=== PATIENT | female | born 1955 | race Caucasian/White ===

== ENCOUNTER 2016-05-11 16:10 | Outpatient (CLI) | payer MEDICARE ==
[2015-07-08 09:33] VITALS: BP 116/69
[2016-05-11 16:16] LABS: BASOPHILS % 0.4 (0.0-1.5); EOSINOPHILS % 0.9 % (0.0-6.8); LYMPHOCYTES # 0.6 # k/uL (0.6-4.0); MEAN CORPUSCULAR HEMOGLOBIN 22.7 pg (28.0-34.0); MONOCYTES # 0.4 # k/uL (0.0-0.9); MONOCYTES % 4.7 % (0.0-11.0); NEUTROPHILS # 6.4 # k/uL (1.4-7.7)
[2016-05-11 16:27] LABS: eGFR (African) > 60; eGFR (Non-African) > 60
== END 2016-05-11 16:11 ==
LOC: LABRHC 16:10
PROVIDERS: ATTEND Family Medicine
DX: I10 Essential (primary) hypertension (principal)
CPT/HCPCS: 80048; 85025

== ENCOUNTER 2016-06-14 20:45 | Emergency (ER) | payer MEDICARE, OTHER ==
--- NOTE | 2016-06-14 21:30 | ED Physician Documentation ---
General Adult - HISTORIAN Historian: patient, paramedics - HPI Stated Complaint: found on floor after falling out of wheelchair Chief Complaint: General Adult Additional Information: brought by EMS, family found her on the floor in [facility], she fell out of wheel chair, obese and non-ambulatory. filthy. Animal and human feces on her. unknown how long she was on floor. Onset: hours Timing: still present Severity: moderate Further Comments: no - ROS CONST: no problems EYES/ENT: none CVS/RESP: none GI/: none MS/SKIN/LYMPH: none NEURO/PSYCH: difficulty walking. denies: headache, fainting, dizziness, tingling, numbness, difficulty with speech - PAST HX Past History: hypertension Other History: other (crohns) Allergies/Adverse Reactions: Allergies Allergy/AdvReac Type Severity Reaction Status Date / Time morphine AdvReac Hallucinati Verified 06/14/16 22:17 ons - SOCIAL HX Smoking History: non-smoker Alcohol Use: none Drug Use: none - FAMILY HX Family History: No - VITAL SIGNS Vital Signs: Vital Signs Temp Pulse Resp BP Pulse Ox 116/69 07/08/15 09:32 - REVIEWED ASSESSMENTS Nursing Assessment Reviewed: Yes Vitals Reviewed: Yes Progress - Results/Orders Results/Orders: Elevated CK, elevated CK-MB, BUN 31.0 , Creat 1.0 - Progress Progress: 2345 Dr. Roberts at [facility] ER accepted transfer, No orders given. - Additional EKG/XRAY/Consults EKG #2: NSR, no ST T wave changes ED Results Lab/Radiology - Lab Results Lab Results: mild anemia 10.2 left shift 89.9 Neut General Adult Physical Exam - PHYSICAL EXAM GENERAL APPEARANCE: mild distress EENT: eye inspection normal, ENT inspection normal NECK: normal inspection RESPIRATORY: no resp distress, breath sounds normal CVS: reg rate & rhythm ABDOMEN: soft (too large to eval) BACK: normal inspection (unable to eval) SKIN: other (covered in feces and urine. multi erythema) NEURO: oriented X3 Discharge Clincal Impression: Elevated creatine kinase level, Hypovolemia, Cellulitis of right lower extremity, Dirty living conditions Fall Qualifiers: Encounter type: initial encounter Qualified Code(s): W19.XXXA - Unspecified fall, initial encounter Obesity Qualifiers: Obesity type: unspecified obesity type Obesity severity: morbid Qualified Code( s): E66.01 - Morbid (severe) obesity due to excess calories Cellulitis Qualifiers: Site of cellulitis: buttock Qualified Code(s): L03.317 - Cellulitis of buttock Cellulitis Qualifiers: Site of cellulitis: buttock Qualified Code(s): L03.317 - Cellulitis of buttock Cellulitis of lower extremity Qualifiers: Laterality: left Qualified Code(s): L03.116 - Cellulitis of left lower limb Pressure ulcer Qualifiers: Pressure ulcer location: contiguous region involving back, buttock, and hip Pressure ulcer stage: unspecified pressure ulcer stage Laterality: unspecified laterality Qualified Code(s): L89.40 - Pressure ulcer of contiguous site of back , buttock and hip, unspecified stage Condition: Fair Disposition: 02 XFER SHT-TRM HOSP Decision to Admit: NO Date of Decison to Admit: 06/15/16 Decision Time: 00:07
[2016-06-14 22:04] LABS: BASOPHILS % 0.3 (0.0-1.5); EOSINOPHILS % 0.2 % (0.0-6.8); LYMPHOCYTES # 0.4 # k/uL (0.6-4.0); MEAN CORPUSCULAR HEMOGLOBIN 21.8 pg (28.0-34.0); MONOCYTES # 0.6 # k/uL (0.0-0.9); MONOCYTES % 4.9 % (0.0-11.0); NEUTROPHILS # 10.8 # k/uL (1.4-7.7)
[2016-06-14 22:13] LABS: eGFR (African) > 60; eGFR (Non-African) > 60
[2016-06-14] MEDS ORDERED: 0.9 % SODIUM CHLORIDE 1,000 ML IV ONE (23:47)
[2016-06-15] MEDS ORDERED: NORMAL SALINE 500 ML IV.SOLN IV SCH (00:30)
[2016-06-15 02:26] VITALS: BP 84/55
--- NOTE | 2016-06-15 06:18 | Diagnostic Imaging Report ---
Report Submission Date: Jun 14, 2016 10:40:10 PM CDT Patient ~ Study Name: JUANIS DANIELS ~ Date: Jun 14, 2016 10:20:56 PM CDT ~ Modality Type: CR Gender: F ~ Description: UPPER EXTREMITY : 55 ~ Institution: [facility] [place] [facility] Physician: MAYA CHACON ~ ~ ~ ~ Left elbow, AP and lateral History: Pain Findings: Soft tissue swelling is present. There is no fracture dislocation. Degenerative changes are noted. Impression: 1. Degenerative change. 2. No acute osseous abnormality. ~ Electronically signed on Jun 14, 2016 10:40:10 PM CDT by: Michael SWENSON
== END 2016-06-15 00:25 | disposition short-term general hospital (02) ==
LOC: ED 20:45
DX: E66.01 Morbid (severe) obesity due to excess calories (principal); L03.317 Cellulitis of buttock; L03.116 Cellulitis of left lower limb; W19.XXXA Unspecified fall, initial encounter; Y93.9 Activity, unspecified; Y99.9 Unspecified external cause status; L89.40 Pressure ulcer of contiguous site of back, buttock and hip, unspecified stage
CPT/HCPCS: 51702; 73070; 80053; 82550; 82553; 84484; 85025; 93005; J7030; 99284; S1016

== ENCOUNTER 2016-10-20 13:38 | Outpatient (CLI) | payer MEDICARE, OTHER ==
--- NOTE | 2016-10-23 14:12 | CONSULTATION REPORT ---
REFERRING PHYSICIAN: Abhijit Sun MD CONSULTING PHYSICIAN: Albaro Thomas MD Dear Dr. Sun: REASON FOR CONSULTATION: Thank you for referring Asuncion Ba for an evaluation of rheumatoid arthritis. HISTORY OF PRESENT ILLNESS: This lady is a 61-year-old white woman who was found in June 2015 to have an elevated rheumatoid factor and a sedimentation rate of 114. She had some improvement with prednisone 10 mg daily. She comes in for further management. When I asked her how long she has had her hand deformity, she tells me she cannot remember. It has been present forever. She tells me a lot of her family members had such deformities. It involves mainly the hands. She has no significant problems with her elbows, shoulder, knees, ankles, or feet. Again, she had some relief with prednisone. Of note, she also suffers from Crohn's disease and is on sulfasalazine. Her bowels have been doing well. She is due for a colonoscopy next week. PAST MEDICAL HISTORY: 1. Hypertension. 2. Crohn's disease. 3. Rheumatoid arthritis. PAST SURGICAL HISTORY: 1. Appendectomy. 2. Pneumonia with an effusion requiring decortication. PRESENT MEDICATIONS: 1. Prednisone 10 mg daily. 2. Metoprolol 50 mg twice a day. 3. Lasix 40 mg daily. 4. Sulfasalazine 1000 mg 4 times a day. 5. Folic acid 1 mg daily. She tried methotrexate 2 tablets weekly for a month and this was stopped due to lack of response. SOCIAL HISTORY: The patient does not smoke. She is disabled. Denies alcohol and drugs. She is current on her health screens including a DEXA scan which was done some time this past year. REVIEW OF SYSTEMS: Positive for a little fatigue, but otherwise presently no fevers, chills, sweats , chest pain, shortness of breath, cough, wheezing, nausea, vomiting, or diarrhea. PHYSICAL EXAMINATION: VITAL SIGNS: BP: 160/90, T: 99, R: 12, heart rate 105. Weight: 244. Height : 5 feet 2 inches. HEENT: Sclerae are anicteric. Conjunctivae are pink. No stomatitis or glossitis. Poor dentition. No parotid or submandibular swelling. NECK: No cervical nodes. LUNGS: Clear. HEART: Regular rhythm. ABDOMEN: Soft and nontender. VASCULAR: No edema or cyanosis. PERIPHERAL JOINTS: Some tenderness at the MCPs and ulnar deviation but no active synovitis. The wrists, elbows, shoulders, hips, knees, ankles, and feet are otherwise unremarkable. REVIEW OF DATA: Rheumatoid factor was over 640 units. TALISHA screen was negative. CPK was slightly elevated at 264 in May of 2016. Creatinine was normal at 1. Last hemoglobin was 10.2. Platelet count 358,000, white count 11.98. IMPRESSION: 1. Seropositive rheumatoid arthritis. I am going to x-ray her hands and feet. 2. Anemia of chronic disease. 3. Severe obesity. 4. History of hypertension. 5. Crohn's disease. PLAN: I am going to keep her on sulfasalazine for her Crohn's disease and attempt to treat her rheumatoid arthritis with triple therapy which would include sulfasalazine, methotrexate 3 tablets weekly, and Plaquenil 200 mg twice a day. I will re-evaluate her in 2 months. At that time, I will check a CBC, CMP, CPK, and repeat a sedimentation rate. On today's visit, we will check a sedimentation rate, CBC, and CMP. Thank you very much for the opportunity to take care of your patients. Best regards, cc: Dr. Abhijit SWENSON
== END 2016-10-20 13:40 ==
LOC: RHEU 13:38
PROVIDERS: ATTEND Internal Medicine
DX: M05.9 Rheumatoid arthritis with rheumatoid factor, unspecified (principal); E66.01 Morbid (severe) obesity due to excess calories; I10 Essential (primary) hypertension; K50.90 Crohn's disease, unspecified, without complications
CPT/HCPCS: G0463

== ENCOUNTER 2016-11-27 14:04 | Outpatient (CLI) | payer MEDICARE, OTHER ==
[2016-11-27 14:48] LABS: BASOPHILS % 0.5 (0.0-1.5); MEAN CORPUSCULAR HEMOGLOBIN 26.5 pg (28.0-34.0); MEAN CORPUSCULAR VOLUME 86.5 fl (80.0-100.0); MONOCYTES % 2.6 % (0.0-11.0); NEUTROPHILS # 8.5 # k/uL (1.4-7.7)
--- NOTE | 2016-11-27 15:19 | Diagnostic Imaging Report ---
NERY GARVEY [facility] [address] [facility].[address] [address] Report Submission Date: Nov 27, 2016 3:06:35 PM CDT Patient Study Name: JUANIS DANIELS Date: Nov 27, 2016 2:20:37 PM CDT Modality Type: CR Gender: F Description: LOWER EXTREMITY : 55 Institution: [facility] Physician: NERY GARVEY Examination: Plain film foot History: Arthritis Findings: 2 views of the left and right feet demonstrates normal cortical margins. No fracture or dislocation. Articular degenerative changes. Generalized osteopenia. Inferior calcaneal spurs. Soft tissue swelling. No joint effusion. Impression: Articular degenerative changes and generalized osteopenia. No fracture. Electronically signed on Nov 27, 2016 3:06:35 PM CDT by: Adarsh SWENSON
[2016-11-27 15:24] LABS: eGFR (African) > 60; eGFR (Non-African) > 60
--- NOTE | 2016-11-27 17:30 | Diagnostic Imaging Report ---
NERY GARVEY~ [facility] [place] [facility] [address] [facility].[address] [address] ~ ~ ~ ~ Report Submission Date: Nov 27, 2016 4:04:26 PM CDT Patient ~ Study Name: JUANIS DANIELS ~ Date: Nov 27, 2016 2:11:01 PM CDT ~ Modality Type: CR Gender: F ~ Description: UPPER EXTREMITY : 55 ~ Institution: [facility] [place] [facility] Physician: NERY GARVEY ~ ~ ~ ~ Examination: Plain film hand History: Hand discomfort Comparison exams: None available Findings: 3 views the right and left hands. Generalized osteopenia. Extensive articular degenerative changes. Degenerative changes of the intra carpal regions. Extensive carpal metacarpal articular degenerative changes. Radiocarpal degenerative changes. Impression: Extensive bilateral arthritic changes. ~ Electronically signed on Nov 27, 2016 4:04:26 PM CDT by: Adarsh SWENSON
== END 2016-11-27 14:05 ==
LOC: LAB 14:04
PROVIDERS: ATTEND Internal Medicine
DX: M05.79 Rheumatoid arthritis with rheumatoid factor of multiple sites without organ or systems involvement (principal); Z79.899 Other long term (current) drug therapy
CPT/HCPCS: 36415; 80053; 85025; 85651

== ENCOUNTER 2016-12-15 12:48 | Outpatient (CLI) | payer MEDICARE, OTHER ==
--- NOTE | 2016-12-18 15:02 | OP Clinic Progress Note ---
Dear Dr. Sun: REASON FOR VISIT: I had the pleasure of seeing Asuncion Ba in follow up for her rheumatoid arthritis. As you know, I started methotrexate and Plaquenil on her last visit and she is presently on triple therapy consisting of the above 2 medications in addition to sulfasalazine. She thinks she has less pain. Otherwise, she has no new deformities. Activities of daily living are still otherwise limited. She has tolerated the methotrexate well with no mouth sores. No chest pain or shortness of breath. No nausea, vomiting, or diarrhea. Plaquenil has caused no visual disturbance or skin rash, nausea or vomiting. Review of her data, her original sedimentation rate was 114. Her recent sedimentation rate was 63. CBC and CMP were found to be within normal limits and not reflecting renal or liver toxicity or anemia. PAST MEDICAL HISTORY: 1. Hypertension. 2. Crohn's disease. 3. Rheumatoid arthritis. 4. Appendectomy. 5. Pneumonia. PRESENT MEDICATIONS: 1. Prednisone 10 mg daily. 2. Methotrexate 3 tablets weekly. 3. Plaquenil 200 mg twice a day. 4. Metoprolol 50 mg twice a day. 5. Lasix 40 mg daily. 6. Folic acid. 7. Sulfasalazine 1000 mg 4 times a day. 8. Trazodone. REVIEW OF SYSTEMS: Review of systems is otherwise positive for stress and , but otherwise, no fevers, chills, sweats, chest pain, shortness of breath, cough, wheezing, nausea, vomiting, or diarrhea. SOCIAL HISTORY: Patient does not smoke. She is disabled. No drug or tobacco use. PHYSICAL EXAMINATION: GENERAL: On exam, she looks well. VITAL SIGNS: Height: 5 feet 7 inches. Weight: 277. R: 20, T: 99.3, heart rate is 100, BP: 159/91. HEENT: Sclerae are anicteric. Conjunctivae are pink. No stomatitis or glossitis. Dentition is poor. LUNGS: Clear with no crackles or wheezing. HEART: Regular rhythm. ABDOMEN: Soft. VASCULAR: She has trace edema of the lower extremities. PERIPHERAL JOINTS: Shows rheumatoid deformities at the MCPs and wrists with a little tenderness but no fluid. Elbows, shoulders, hips, knees, ankles, and feet are nontender. DIAGNOSTIC STUDIES: I personally reviewed her labs and also personally reviewed her x-rays and disagree with the radiology reading. She has classical findings of soft tissue swelling, ulnar deviation, joint space narrowing with erosions throughout the MTPs and the carpal bones on both the right and left hand. IMPRESSION: Seropositive erosive severe rheumatoid arthritis, improving on triple therapy. PLAN: We will try to decrease her prednisone to 5 mg a day. I will see her back in March. She will get a CBC, CMP, sedimentation rate, CRP approximately a week before her next visit. Thank you very much for the opportunity to participate in the care of your patient. Best regards, cc: Dr. Abhijit SWENSON
== END 2016-12-15 12:50 ==
LOC: RHEU 12:48
PROVIDERS: ATTEND Internal Medicine
DX: M05.9 Rheumatoid arthritis with rheumatoid factor, unspecified (principal)
CPT/HCPCS: G0463

== ENCOUNTER → 2017-03-09 | Outpatient (CLI) | payer MEDICARE, OTHER ==
[2017-03-09 12:22] LABS: BASOPHILS % 0.9 (0.0-1.5); EOSINOPHILS % 1.8 % (0.0-6.8); MEAN CORPUSCULAR HEMOGLOBIN 29.6 pg (28.0-34.0); MEAN CORPUSCULAR VOLUME 95.1 fl (80.0-100.0); MONOCYTES % 4.3 % (0.0-11.0); NEUTROPHILS # 8.3 # k/uL (1.4-7.7)
[2017-03-09 12:37] LABS: eGFR (African) > 60; eGFR (Non-African) > 60
== END ==
LOC: LAB 11:54
PROVIDERS: ATTEND Internal Medicine
DX: M05.79 Rheumatoid arthritis with rheumatoid factor of multiple sites without organ or systems involvement (principal)
CPT/HCPCS: 36415; 80053; 85025; 85651; 86140

== ENCOUNTER 2017-05-18 13:03 | Outpatient (CLI) | payer MEDICARE, OTHER ==
--- NOTE | 2017-05-21 11:40 | OP Clinic Progress Note ---
REASON FOR VISIT: Asuncion Ba returns for follow up on her seropositive rheumatoid arthritis of multiple sites. She is doing significantly better. She has no significant joint swelling, warmth, tenderness, or pain. She had 1 episode where she fell asleep on the couch and woke up in an awkward position and had generalized pain but that resolved quickly. PAST MEDICAL HISTORY: 1. Hypertension. 2. Crohn's disease. 3. Rheumatoid arthritis. 4. Appendectomy. 5. Pneumonia. PRESENT MEDICATIONS: 1. Prednisone 5 mg daily. 2. Plaquenil 200 mg twice a day. 3. Metoprolol 50 mg daily. 4. Sulfasalazine 1000 mg 4 times a day. 5. Lasix 40 mg daily. 6. Folic acid 1 mg daily. 7. Trazodone as needed. 8. Methotrexate weekly. SOCIAL HISTORY: No smoking. She is disabled. No drug or tobacco use. REVIEW OF SYSTEMS: No fevers, chills, sweats, chest pain, shortness of breath, cough, or wheezing. She does note that her weight continues to increase and she is having some issues with water retention. PHYSICAL EXAMINATION: GENERAL: She looks well. She is using a wheeled walker. VITAL SIGNS: Height: 5 feet 8 inches. Weight: 303. T: 97.7, R: 20, heart rate 100, BP: 160/96. HEENT: Sclerae are anicteric. Conjunctivae are pink. No stomatitis or glossitis. LUNGS: Clear. HEART: Regular rhythm. ABDOMEN: Soft. VASCULAR: She has edema of her lower extremities. PERIPHERAL JOINTS: Rheumatoid deformities at the MCPs and wrists, but no tenderness or significant effusions. LABORATORY: Her last labs revealed a sedimentation rate of 57. White count of 9.9, hemoglobin of 14.2. AST 13 and ALT of 29. CRP was 3.87. IMPRESSION: Seropositive rheumatoid arthritis, improving. Let us recall she is seropositive with a rheumatoid factor of over 650. PLAN: 1. We will check her labs for drug toxicity and disease activity today and also screening her for viral hepatitis and QuantiFERON-TB Gold 2. I will see her back in 3 months. Thank you very much. Best regards, cc: Dr. Abhijit SWENSON
== END 2017-05-18 13:04 ==
LOC: RHEU 13:03
PROVIDERS: ATTEND Internal Medicine
DX: M05.9 Rheumatoid arthritis with rheumatoid factor, unspecified (principal)
CPT/HCPCS: 99214; G0463

== ENCOUNTER 2017-07-11 09:30 | Inpatient (IN) | payer MEDICARE, OTHER ==
--- NOTE | 2017-07-11 09:45 | ED Physician Documentation ---
General Adult - HISTORIAN Historian: patient - HPI Stated Complaint: weakness Chief Complaint: Weakness Onset: days ago (2) Timing: still present Severity: moderate Further Comments: yes (She states she has been treated for RA and in the past she has had low potassium and she feels that is what this is . She has weakness. Denies any N/V/D. She is not caring for her personal hygeine due to the weakness. She states that she was seeing Dr Sun for the lower leg cellulitis but due to "flu and other things I havent went to my last two week appts" She denies a fever. She is taking her medications daily) Last known Well Date: 07/09/17 Last Known Well Time: 09:00 Last known Well Code/Unknown Code: Unknown - ROS CONST: weakness EYES/ENT: nasal drainage CVS/RESP: cough. denies: chest pain, shortness of breath GI/: denies: problems urinating, vomiting, nausea, diarrhea MS/SKIN/LYMPH: denies: rash NEURO/PSYCH: denies: headache, fainting, dizziness, tingling, numbness - PAST HX Past History: other (Chron's Disease, RA, HTN, history of Afib, CHF ) Other History: other Surgeries/Procedures: other Immunizations: UTD Allergies/Adverse Reactions: Allergies Allergy/AdvReac Type Severity Reaction Status Date / Time morphine AdvReac Hallucinati Verified 07/11/17 09:49 ons - SOCIAL HX Smoking History: non-smoker Alcohol Use: none Drug Use: none - FAMILY HX Family History: Yes - VITAL SIGNS Vital Signs: Vital Signs Temp Pulse Resp BP Pulse Ox 84/55 06/15/16 02:22 - REVIEWED ASSESSMENTS Nursing Assessment Reviewed: Yes Progress - Progress Progress: 1055: she is stating her pain in her legs is 10/10 DG 1200: discussed case with Dr Sun he is agreeable to admit pt for further care DG ED Results Lab/Radiology - Radiology Radiology Impressions: Examination: Portable chest History: Evaluate lungs. PCXR, WEAKNESS, HX OF CHF, PT HAVING DIFFICULTY FOLLOWING INSTRUCTIONS (Hx) Comparison exam: None provided. Findings: Single view of the chest demonstrates a hypoventilated inspiratory effort resulting in crowding of the cardiac and mediastinal silhouette. Tortuous aorta. Diffuse bilateral parenchymal haziness/fullness. No definite costophrenic margin blunting. Articular degenerative changes. Impression: Poor inspiratory effort with diffuse parenchymal/interstitial fullness without definite effusion. Findings could represent component of congestive failure. Consider obtaining a formal PA and lateral film to better evaluate. Electronically signed on Jul 11, 2017 11:18:24 AM CDT by: Adarsh Baeza General Adult Physical Exam - PHYSICAL EXAM GENERAL APPEARANCE: mild distress EENT: eye inspection normal, ENT inspection normal NECK: normal inspection RESPIRATORY: no resp distress, chest non-tender, breath sounds normal CVS: reg rate & rhythm, heart sounds normal, equal pulses, no murmur ABDOMEN: soft, normal bowel sounds, no distension, non-tender SKIN: other (pitting edema 2+ knee down. Skin is covered in urine and dirt. Feet are black in color she states from dirt with odor. Excoration under both breasts with yeast appearing rash in between breast. Bilateral lower legs. Attempt to examine lower legs and feet compromised with soiled feet. She has bilateral lower leg cellulitis with pitting edema and black colored feet from infection/soiled. Rating pain with any palpation to severe. Not able to palpate pulses or cap refill. sensation is pain not able to determine sensation with palpation. buttocks also with excoration. Drainage from left eye . Several open areas on buttock and legs - see nurses notes for measurements ) EXTREMITIES: edema (2) NEURO: oriented X3, CN's nml as tested, sensation nml, mood/affect nml Discharge Clincal Impression: Bilateral lower leg cellulitis, Weakness, Dionne infection Obesity Qualifiers: Obesity type: unspecified obesity type Obesity classification: adult class 3 ( BMI >= 40) Serious obesity comorbidity presence: with serious comorbidity Body mass index: BMI 45.0-49.9 Qualified Code(s): E66.9 - Obesity, unspecified Crohns disease Qualifiers: Gastrointestinal tract location: unspecified location Digestive disease complication type: unspecified complication Qualified Code(s): K50.919 - Crohn' s disease, unspecified, with unspecified complications CHF (congestive heart failure) Qualifiers: Heart failure type: unspecified Heart failure chronicity: chronic Qualified Code(s): I50.9 - Heart failure, unspecified UTI (urinary tract infection) Qualifiers: Urinary tract infection type: site unspecified Hematuria presence: without hematuria Qualified Code(s): N39.0 - Urinary tract infection, site not specified Referrals: Abhijit Sun MD [Primary Care Provider] - 2 Days Condition: Serious Disposition: 09 ADMITTED INPATIENT Decision to Admit: [id number] Date of Decison to Admit: 07/11/17 Decision Time: 12:00
[2017-07-11] MEDS ORDERED: fentaNYL CITRATE/PF 100 MCG/ 2ML AMP IVP ONE ×2 (10:47→12:27)
[2017-07-11 11:01] LABS: BASOPHILS % 0.7 (0.0-1.5); MEAN CORPUSCULAR HEMOGLOBIN 29.8 pg (28.0-34.0); MEAN CORPUSCULAR VOLUME 93.4 fl (80.0-100.0); MONOCYTES % 4.9 % (0.0-11.0)
[2017-07-11 11:07] LABS: eGFR (African) > 60; eGFR (Non-African) > 60
[2017-07-11] MEDS ORDERED: FUROSEMIDE 20 MG/2 ML VIAL IVP ONE (11:43)
[2017-07-11] MEDS ORDERED: cefTRIAXone SODIUM 1 GM in 0.9 % SODIUM CHLORIDE 100 ML IV ONE (11:56)
[2017-07-11] MEDS ORDERED: cefTRIAXone SODIUM 1 GM VIAL ONE (12:02)
--- NOTE | 2017-07-11 12:11 | ED Physician Documentation ---
Lower Extremity Injury - HISTORIAN Historian: patient - HPI Stated Complaint: weakness Chief Complaint: Upper Extremity Injury Onset: hours (e) Where: school Severity: moderate Context: twist Associated Symptoms:: unable to bear weight - ROS CONST: no problems - PAST HX Allergies/Adverse Reactions: Allergies Allergy/AdvReac Type Severity Reaction Status Date / Time morphine AdvReac Hallucinati Verified 07/11/17 09:49 ons - FAMILY HX Family History: none - VITAL SIGNS Vital Signs: Vital Signs Temp Pulse Resp BP Pulse Ox 98.7 F 104 H 16 111/82 95 07/11/17 09:30 07/11/17 09:30 07/11/17 09:30 07/11/17 09:30 07/11/17 09:30 ED Results Lab/Radiology - Lab Results Lab Results: Lab Results 07/11/17 07/11/17 07/11/17 10:45 10:45 10:45 WBC 12.80 K/ul H K/ul (4.00-12.00) RBC 4.18 M/ul M/ul (3.90-5.20) Hgb 12.4 g/dL g/dL (12.0-16.0) Hct 39.0 % % (34.5-46.5) MCV 93.4 fl fl (80.0-100.0) MCH 29.8 pg pg (28.0-34.0) MCHC 31.9 g/dL g/dL (30.0-36.0) RDW 15.6 % H % (11.3-14.3) Plt Count 371 K/mm3 K/mm3 (130-400) Neut % (Auto) 86.5 % H % (39.0-79.0) Lymph % (Auto) 5.8 % L % (16.0-50.0) [place] % (Auto) 4.9 % % (0.0-11.0) Eos % (Auto) 1.0 % % (0.0-6.8) Baso % (Auto) 0.7 (0.0-1.5) Neut # (Auto) 11.0 # k/uL H # k/uL (1.4-7.7) Lymph # (Auto) 0.7 # k/uL # k/uL (0.6-4.0) [place] # (Auto) 0.6 # k/uL # k/uL (0.0-0.9) Eos # (Auto) 0.1 # k/uL # k/uL (0.0-0.6) Baso # (Auto) 0.1 # k/uL # k/uL (0.0-0.5) Reactive Lymphs % 1.1 % % (0.0-5.0) Reactive Lymphs # 0.2 # k/uL # k/uL (0.0-0.8) Sodium 141 mmol/L mmol/L (136-145) Potassium 3.8 mmol/L mmol/L (3.5-5.1) Chloride 102 mmol/L mmol/L (98-107) Carbon Dioxide 24 mmol/L mmol/L (22-30) BUN 23 mg/dL H mg/dL (7-17) Creatinine 0.90 mg/dL mg/dL (0.52-1.04) Estimated Creat Clear 168 Est GFR ( Amer) > 60 (60 - ) Est GFR (Non-Af Amer) > 60 (60 - ) Glucose 153 mg/dL H mg/dL (74-106) Calcium 9.5 mg/dL mg/dL (8.4-10.2) Total Bilirubin 0.6 mg/dL mg/dL (0.2-1.3) AST 56 U/L H U/L (15-46) ALT 45 U/L U/L (13-69) Alkaline Phosphatase 182 U/L H U/L (38-126) NT-Pro-B Natriuret Pep 1818.8 pg/mL H pg/mL (15.0-125.0) Total Protein 7.9 g/dL g/dL (6.3-8.2) Albumin 3.7 g/dL g/dL (3.5-5.0) - Orders Orders: ED Orders Category Date Time Status Catheter [Urinary catheterization] 1T Care 07/11/17 12:[address] IV Lock 1T Care 07/11/17 10:04 Active CHEST 1VIEW [RAD] Stat Exams 07/11/17 Taken BLOOD CULTURE Stat Lab 07/11/17 Ordered BNP [NT-proBNP] Stat Lab 07/11/17 10:45 Completed CBC/PLATELET/DIFF Routine Lab 07/11/17 10:45 Completed CMP [CMP] Routine Lab 07/11/17 10:45 Completed UA W/MICRO IF INDICATED Routine Lab 07/11/17 10:05 Ordered Furosemide [Lasix] Med 07/11/17 11:43 Once 20 mg IVP NOW ONE cefTRIAXone SODIUM [Rocephin] Med 07/11/17 12:02 Discontinued 1 gm .ROUTE .STK-MED ONE cefTRIAXone SODIUM [Rocephin] 1 gm Med 07/11/17 11:56 Ordered 0.9 % Sodium Chloride [Sodium Chloride] 100 ml IV NOW fentaNYL CITRATE/PF [Duragesic] Med 07/11/17 10:47 Discontinued 50 mcg IVP NOW ONE Discharge Referrals: Abhijit Sun MD [Primary Care Provider] - 2 Days
[2017-07-11] MEDS ORDERED: SILVER SULFADIAZINE 20GM TUBE TP ONE ×2 (12:30→15:22)
[2017-07-11] MEDS ORDERED: KETOROLAC TROMETHAMINE 30 MG/1ML VIAL ONE (13:27)
[2017-07-11] MEDS ORDERED: KETOROLAC TROMETHAMINE 30 MG/1ML VIAL IVP ONE (13:28)
[2017-07-11] MEDS ORDERED: ONDANSETRON HCL/PF 4 MG/ 2ML VIAL IVP PRN (15:22)
[2017-07-11] MEDS ORDERED: IBUPROFEN 400 MG TABLET PO PRN (15:22)
[2017-07-11] MEDS: cefTRIAXone SODIUM 1 GM in 0.9 % SODIUM CHLORIDE 100 ML IV SCH (16:14)
[2017-07-11 16:34] VITALS: BMI 47.6
[2017-07-11] MEDS ORDERED: ACETAMINOPHEN 325 MG TABLET PO PRN (16:52)
[2017-07-11] MEDS: GENTAMICIN SULFATE 0.3% OPTH SOL OP SCH ×2 (16:54→17:43)
[2017-07-11] MEDS ORDERED: NYSTATIN POWDER BOTTLE TP SCH (17:00)
[2017-07-11] MEDS: ENOXAPARIN SODIUM 60 MG/0.6 ML DISP.SYRIN SQ SCH (17:03)
[2017-07-11] MEDS ORDERED: HYDROcodone /APAP 5/325 1 EACH TABLET ONE ×2 (17:22→22:09)
[2017-07-11] MEDS: HYDROcodone /APAP 5/325 1 EACH TABLET PO PRN ×2 (17:24→22:11)
[2017-07-11] MEDS: GABAPENTIN 100 MG CAPSULE PO SCH (17:42)
[2017-07-11] MEDS: CLINDAMYCIN PHOSPHATE 600 MG in 0.9 % SODIUM CHLORIDE 100 ML IV SCH (17:42)
[2017-07-11] MEDS ORDERED: CLINDAMYCIN PHOSPHATE 600 MG in 0.9 % SODIUM CHLORIDE 100 ML IV SCH (18:00)
[2017-07-11] MEDS ORDERED: CLINDAMYCIN PHOSPHATE 600 MG in 0.9 % SODIUM CHLORIDE 50 ML IV SCH (18:00)
[2017-07-11] MEDS: KETOROLAC TROMETHAMINE 30 MG/1ML VIAL IVP PRN (19:37)
[2017-07-11] MEDS: SULFASALAZINE 500 MG TABLET PO SCH (19:50)
[2017-07-11] MEDS: METOPROLOL TARTRATE 50 MG TABLET PO SCH (19:51)
--- NOTE | 2017-07-11 20:04 | Diagnostic Imaging Report ---
GERARDO KAN - ANDREW~ [facility] [address] [facility] [address], [place]. [address] ~ ~ ~ ~ Report Submission Date: Jul 11, 2017 11:18:24 AM CDT Patient ~ Study Name: JUANIS DANIELS ~ Date: Jul 11, 2017 10:54:18 AM CDT ~ Modality Type: DX Gender: F ~ Description: CHEST : 55 ~ Institution: [facility] Physician: GERARDO KAN ~ ~ ~ Examination: Portable chest History: Evaluate lungs. PCXR, WEAKNESS, HX OF CHF, PT HAVING DIFFICULTY FOLLOWING INSTRUCTIONS (Hx) Comparison exam: None provided. Findings: Single view of the chest demonstrates a hypoventilated inspiratory effort resulting in crowding of the cardiac and mediastinal silhouette. Tortuous aorta. Diffuse bilateral parenchymal haziness/fullness. No definite costophrenic margin blunting. Articular degenerative changes. Impression: Poor inspiratory effort with diffuse parenchymal/interstitial fullness without definite effusion. Findings could represent component of congestive failure. Consider obtaining a formal PA and lateral film to better evaluate. ~ Electronically signed on Jul 11, 2017 11:18:24 AM CDT by: Adarsh SWENSON
[2017-07-11] MEDS ORDERED: LISINOPRIL 10 MG PO SCH (21:00)
[2017-07-11] MEDS: SALINE FLUSH 10 ML DISP.SYRIN IV SCH (21:00)
[2017-07-11 21:03] LABS: APPEARANCE,URINE TURBID (CLEAR); COLOR,URINE AMBER (YELLOW)
[2017-07-11 21:04] LABS: OCCULT BLOOD,URINE 2+ (NEGATIVE); PH URINE 5.5 (5.0 - 8.0); UROBILINOGEN URINE 0.2 Eu (0.2-1.0)
[2017-07-12] MEDS: KETOROLAC TROMETHAMINE 30 MG/1ML VIAL IVP PRN ×2 (01:41→21:02)
[2017-07-12] MEDS ORDERED: LISINOPRIL 20 MG TABLET ONE (02:47)
[2017-07-12] MEDS ORDERED: HYDROcodone /APAP 5/325 1 EACH TABLET ONE (03:25)
[2017-07-12] MEDS: HYDROcodone /APAP 5/325 1 EACH TABLET PO PRN (03:31)
[2017-07-12 07:21] LABS: BASOPHILS % 0.6 (0.0-1.5); EOSINOPHILS % 1.3 % (0.0-6.8); MEAN CORPUSCULAR HEMOGLOBIN 28.7 pg (28.0-34.0); MEAN CORPUSCULAR VOLUME 93.8 fl (80.0-100.0); MONOCYTES % 7.9 % (0.0-11.0)
[2017-07-12 07:55] LABS: eGFR (African) > 60; eGFR (Non-African) > 60
[2017-07-12] MEDS ORDERED: FUROSEMIDE 20 MG/2 ML VIAL IVP SCH (09:00)
[2017-07-12] MEDS: SULFASALAZINE 500 MG TABLET PO SCH ×4 (09:05→21:41)
[2017-07-12] MEDS: METOPROLOL TARTRATE 50 MG TABLET PO SCH ×2 (09:05→20:53)
[2017-07-12] MEDS: GABAPENTIN 100 MG CAPSULE PO SCH ×3 (09:05→17:57)
[2017-07-12] MEDS: LISINOPRIL 5 MG TABLET PO SCH (09:06)
[2017-07-12] MEDS: GENTAMICIN SULFATE 0.3% OPTH SOL OP SCH ×3 (09:06→17:57)
[2017-07-12] MEDS: FOLIC ACID 1 MG TABLET PO SCH (09:06)
--- NOTE | 2017-07-12 09:35 | Inpatient Progress Note ---
Subjective - Required Recertification Statement I anticipate X number of days because-include discharge plan: 3 - Review of Systems Events since last encounter: Asuncion is having quite a bit of pain in her legs between dosages of hydrocodone. her legs are still weeping quite a bit. I was able to see her sacral decubiti this morning. They are open, but not draining. No tunneling is noted. She is breathing well. Her appetite is good and her WBC has come down. No evidence of adverse reaction to her antibiotics. We discussed that she will need penitentiary care at least for a while on discharge. She is very resistant to this. General: Denies: Chills HEENT: Denies: Head Aches Pulmonary: Denies: Dyspnea Cardiovascular: Denies: Chest Pain Gastrointestinal: Denies: Nausea Genitourinary: Denies: Dysuria Musculoskeletal: Leg Pain Neurological: Weakness. Denies: Change in Speech, Confusion Objective - Exam Vitals and I&O: Vital Signs Temp 99.7 F H 07/12/17 06:00 Pulse 89 07/12/17 06:00 Resp 20 07/12/17 06:00 BP 111/55 07/12/17 06:00 Pulse Ox 94 07/12/17 06:00 Intake & Output 07/11/17 07/11/17 07/12/17 11:59 23:59 11:59 Intake Total 240 240 Output Total 500 Balance 240 -260 Weight 137.892 kg Intake: Oral 240 240 Output: Urine 500 Other: Voiding Method Indwelling Catheter General: Alert, Oriented to Person, Oriented to Place HEENT: Atraumatic Neck: Supple, No JVD Lungs: Clear to auscultation, Normal air movement, Speaks full Sentences Cardiovascular: Regular rate, Normal S1, Normal S2 Abdomen: Normal bowel sounds, Other (yeast under pannus and breasts) Extremities: Other (chronic venous stasis and cellulitis) Skin: Other Neurological: Normal speech Psych/Mental Status: Mental status NL - Results Results: Laboratory Results WBC 8.00 K/ul (4.00-12.00) 07/12/17 06:35 RBC 3.58 M/ul (3.90-5.20) L 07/12/17 06:35 Hgb 10.3 g/dL (12.0-16.0) L 07/12/17 06:35 Hct 33.5 % (34.5-46.5) L 07/12/17 06:35 MCV 93.8 fl (80.0-100.0) 07/12/17 06:35 MCH 28.7 pg (28.0-34.0) 07/12/17 06:35 MCHC 30.6 g/dL (30.0-36.0) 07/12/17 06:35 RDW 15.6 % (11.3-14.3) H 07/12/17 06:35 Plt Count 336 K/mm3 (130-400) 07/12/17 06:35 Neut % (Auto) 74.9 % (39.0-79.0) 07/12/17 06:35 Lymph % (Auto) 12.6 % (16.0-50.0) L 07/12/17 06:35 [place] % (Auto) 7.9 % (0.0-11.0) 07/12/17 06:35 Eos % (Auto) 1.3 % (0.0-6.8) 07/12/17 06:35 Baso % (Auto) 0.6 (0.0-1.5) 07/12/17 06:35 Neut # (Auto) 6.0 # k/uL (1.4-7.7) 07/12/17 06:35 Lymph # (Auto) 1.0 # k/uL (0.6-4.0) 07/12/17 06:35 [place] # (Auto) 0.6 # k/uL (0.0-0.9) 07/12/17 06:35 Eos # (Auto) 0.1 # k/uL (0.0-0.6) 07/12/17 06:35 Baso # (Auto) 0.0 # k/uL (0.0-0.5) 07/12/17 06:35 Reactive Lymphs % 2.7 % (0.0-5.0) 07/12/17 06:35 Reactive Lymphs # 0.2 # k/uL (0.0-0.8) 07/12/17 06:35 Sodium 140 mmol/L (136-145) 07/12/17 06:35 Potassium 3.6 mmol/L (3.5-5.1) 07/12/17 06:35 Chloride 105 mmol/L (98-107) 07/12/17 06:35 Carbon Dioxide 23 mmol/L (22-30) 07/12/17 06:35 BUN 19 mg/dL (7-17) H 07/12/17 06:35 Creatinine 0.70 mg/dL (0.52-1.04) 07/12/17 06:35 Estimated Creat Clear 216 07/12/17 06:35 Est GFR ( Amer) > 60 (60-) 07/12/17 06:35 Est GFR (Non-Af Amer) > 60 (60-) 07/12/17 06:35 Glucose 105 mg/dL (74-106) 07/12/17 06:35 Lactate 2.7 U/L (0.7-2.1) H 07/11/17 10:45 Calcium 8.5 mg/dL (8.4-10.2) 07/12/17 06:35 Total Bilirubin 0.6 mg/dL (0.2-1.3) 07/12/17 06:35 AST 38 U/L (15-46) 07/12/17 06:35 ALT 37 U/L (13-69) 07/12/17 06:35 Alkaline Phosphatase 139 U/L (38-126) H 07/12/17 06:35 NT-Pro-B Natriuret Pep 2956.0 pg/mL (15.0-125.0) H 07/12/17 06:35 Total Protein 5.9 g/dL (6.3-8.2) L 07/12/17 06:35 Albumin 2.7 g/dL (3.5-5.0) L 07/12/17 06:35 Urine Color Annalee (YELLOW) 07/11/17 12:37 Urine Appearance Turbid (CLEAR) H 07/11/17 12:37 Urine pH 5.5 (5.0 - 8.0) 07/11/17 12:37 Ur Specific [place] >=1.030 (1.010-1.030) H 07/11/17 12:37 Urine Protein 2+ mg/dL (NEGATIVE) H 07/11/17 12:37 Urine Ketones Negative mg/dL (NEGATIVE) 07/11/17 12:37 Urine Occult Blood 2+ (NEGATIVE) H 07/11/17 12:37 Urine Nitrite Positive (NEGATIVE) H 07/11/17 12:37 Urine Bilirubin Negative (NEGATIVE) 07/11/17 12:37 Urine Urobilinogen 0.2 Eu (0.2-1.0) 07/11/17 12:37 Ur Leukocyte Esterase 1+ (NEGATIVE) H 07/11/17 12:37 Urine Glucose Negative mg/dL (NEGATIVE) 07/11/17 12:37 Assessment/Plan - Assessment/Plan (1) Bilateral lower leg cellulitis Status: Acute Current Visit: Yes Assessment: Continue Rocephin/clindamycin, await cultures Increased pain medication to percocet 5/325 2 po q4h prn pain (2) CHF (congestive heart failure) Status: Acute Current Visit: Yes Qualifiers: Heart failure type: unspecified Heart failure chronicity: chronic Qualified Code(s): I50.9 - Heart failure, unspecified Assessment: improved Plan: Continue Lasix (3) UTI (urinary tract infection) Status: Acute Current Visit: Yes Qualifiers: Urinary tract infection type: site unspecified Hematuria presence: without hematuria Qualified Code(s): N39.0 - Urinary tract infection, site not specified Assessment: Continue current antibiotic therapy (4) Weakness Status: Acute Current Visit: Yes Assessment: Due to obesity, multiple medical conditions.
[2017-07-12] MEDS ORDERED: NYSTATIN POWDER BOTTLE TP ONE (09:36)
[2017-07-12] MEDS: CLINDAMYCIN PHOSPHATE 600 MG in 0.9 % SODIUM CHLORIDE 100 ML IV SCH ×2 (10:05→17:57)
[2017-07-12] MEDS: oxyCODONE/ACETAMINOPHEN 5/325 TABLET PO PRN ×3 (10:05→22:31)
[2017-07-12] MEDS: SALINE FLUSH 10 ML DISP.SYRIN IV SCH ×2 (10:05→20:53)
[2017-07-12] MEDS ORDERED: cefTRIAXone SODIUM 1 GM VIAL ONE (12:47)
--- NOTE | 2017-07-12 14:31 | History and Physical Report ---
CHIEF COMPLAINT: 1. Sepsis. 2. Lower extremity cellulitis. 3. Urinary tract infection. HISTORY OF PRESENT ILLNESS: This is a 61-year-old female well known to myself who presents to the emergency department after having had inability to get up while she was at home. She became very weak and thought she might have had a little bit of fever. Her legs have become more and more infected. She has missed multiple appointments to follow up for those and she presented to the emergency room today with a markedly infected right lower extremity and a markedly irritated left. They were covered with a remarkable amount of debris and urine when she arrived. Her general hygiene was remarkably poor also. She has been admitted with sepsis, urinary tract infection, and dehydration. PAST MEDICAL HISTORY: 1. History of marked medical noncompliance. 2. History of morbid obesity. 3. Poor hygiene. 4. Rheumatoid arthritis. 5. Chronic venous stasis dermatitis. 6. Dental caries. 7. Hypertension. 8. Crohn's disease. PAST SURGICAL HISTORY: 1. History of an appendectomy. 2. Thoracotomy when she had pneumonia. CODE STATUS: FULL CODE. CURRENT MEDICATIONS: 1. Metoprolol tartrate 50 mg p.o. b.i.d. 2. Lasix 40 mg p.o. b.i.d. 3. Methotrexate 2.5 mg p.o. weekly. 4. Sulfasalazine 500 mg 2 p.o. q.i.d. 5. Gabapentin 100 mg p.o. t.i.d. 6. Tylenol 325 mg p.o. every 4 hours p.r.n. pain. 7. Folic acid 1 mg p.o. daily. 8. Vitamin B12. She had been on prednisone but Dr. Thomas had taken her off of that. ALLERGIES: Morphine. SOCIAL HISTORY: She is single. She has never . She has never had any children. She lives at a home here on [address]. She has had her house nearly condemned. Her brother was able to come in and get it cleaned up and she was in the long-term while that was happening. She moved back into it and apparently has reverted back to her poor hygiene habits. FAMILY HISTORY: Father at age 60 from a stroke. He had an IA. He was also a diabetic. Mother had uterine cancer and diabetes and at age 64. She had a brother who of pancreatic cancer. REVIEW OF SYSTEMS: Notable for increasing weakness. No fever, chills, nausea, or vomiting. She has not had any chest pain. She has not had any abdominal pain. She does have a rash under both her breasts, as well as under her pannus, which is consistent with yeast. Her extremities are warm and well perfused. She claims to be cleaning her legs pretty regularly, but their appearance would suggest otherwise. PHYSICAL EXAMINATION: Vital Signs: T: 97.4 degrees, P: 55, BP: 111/82, R: 16, pulse oximetry is 95 % on room air. General: This is a 61-year-old female who looks markedly older than her stated age. She is morbidly obese. HEENT: Her head is normocephalic and atraumatic. Her dentition is in remarkably poor condition. She is missing multiple teeth. Neck: No JVD is noted. Lungs: Clear. Heart: Regular. Breasts: Underneath both breasts, there is a large amount of yeast. This is also underneath her pannus. Abdomen: She appears to have a single insect bite on her left lower abdomen about 4 to 5 cm below and to the left of her umbilicus. Extremities: Examination of both of her hands shows marked ulnar deviation of all of her digits consistent with rheumatoid arthritis. Legs show multiple open weeping and infected wounds from her chronic venous stasis disease. Her feet are black on the bottom. Nursing has had her in the shower and has scrubbed quite a bit on her. They state that the top of her feet was also black when they brought her in. Mental Status: She is alert and oriented and has fairly good insight and judgment, as well as a good memory. LABORATORY: Laboratory shows a white count of 12,800, hemoglobin 12.4, hematocrit 39.0, platelets 371,000 with a left shift, 86.5% neutrophils. Chemistry panel is surprisingly normal, although her lactic acid is up just a little bit at 2.7, glucose was 153. The rest of her electrolytes are within normal limits. RADIOLOGY: Chest x-ray shows failure. No discrete infiltrates are identified. ASSESSMENT: 1. Cellulitis on bilateral lower extremities with result in sepsis. 2. Congestive heart failure. 3. Morbid obesity. 4. Crohn's disease. 5. Rheumatoid arthritis. 6. Remarkable lack of self-care. 7. Depression. 8. Urinary tract infection. PLAN: 1. Continue her current medications. 2. Likely will need to do whirlpool to get her legs debrided. I do not think she is strong enough to tolerate that this evening. 3. Start hydrocodone for pain. 4. Continue her on Rocephin and Clindamycin, which I believe should cover both her lower extremities. 5. We will await her blood cultures coming back. 6. Recheck her CBC, CMP, and BNP in the morning. 7. Continue her FULL CODE status. MTDD
[2017-07-12] MEDS ORDERED: 0.9 % SODIUM CHLORIDE 500 ML IV SCH ×2 (15:00→19:00)
[2017-07-12] MEDS ORDERED: 0.9 % SODIUM CHLORIDE 500 ML IV ONE ×3 (15:41→18:28)
[2017-07-12] MEDS: ENOXAPARIN SODIUM 60 MG/0.6 ML DISP.SYRIN SQ SCH (16:40)
[2017-07-12] MEDS: cefTRIAXone SODIUM 1 GM in 0.9 % SODIUM CHLORIDE 100 ML IV SCH (16:52)
[2017-07-12] MEDS ORDERED: 0.9 % SODIUM CHLORIDE 1,000 ML IV SCH (19:00)
[2017-07-12 19:39] LABS: BASOPHILS % 0.5 (0.0-1.5); EOSINOPHILS % 1.6 % (0.0-6.8); MEAN CORPUSCULAR HEMOGLOBIN 29.5 pg (28.0-34.0); MEAN CORPUSCULAR VOLUME 94.2 fl (80.0-100.0); MONOCYTES % 8.6 % (0.0-11.0); NEUTROPHILS # 5.4 # k/uL (1.4-7.7)
[2017-07-12 20:07] LABS: eGFR (African) > 60; eGFR (Non-African) > 60
[2017-07-12] MEDS: NYSTATIN POWDER BOTTLE TP SCH (20:54)
[2017-07-12] MEDS: SILVER SULFADIAZINE 400GM TUBE TP SCH (20:55)
[2017-07-12] MEDS ORDERED: SILVER SULFADIAZINE 20GM TUBE TP SCH (21:00)
[2017-07-13] MEDS: CLINDAMYCIN PHOSPHATE 600 MG in 0.9 % SODIUM CHLORIDE 100 ML IV SCH ×4 (01:30→17:24)
[2017-07-13] MEDS: oxyCODONE/ACETAMINOPHEN 5/325 TABLET PO PRN ×5 (01:58→22:49)
[2017-07-13 06:55] LABS: MEAN CORPUSCULAR HEMOGLOBIN 29.1 pg (28.0-34.0); MEAN CORPUSCULAR VOLUME 95.3 fl (80.0-100.0)
[2017-07-13 07:09] LABS: eGFR (African) > 60; eGFR (Non-African) > 60
[2017-07-13 07:11] LABS: PH BG VENOUS 7.42 (7.32-7.43)
[2017-07-13] MEDS: FOLIC ACID 1 MG TABLET PO SCH (07:58)
[2017-07-13] MEDS: SULFASALAZINE 500 MG TABLET PO SCH ×4 (07:58→20:01)
[2017-07-13] MEDS: GABAPENTIN 100 MG CAPSULE PO SCH ×3 (07:59→17:23)
[2017-07-13] MEDS: GENTAMICIN SULFATE 0.3% OPTH SOL OP SCH ×3 (07:59→17:31)
[2017-07-13] MEDS: METOPROLOL TARTRATE 50 MG TABLET PO SCH ×2 (07:59→20:02)
[2017-07-13] MEDS: LISINOPRIL 5 MG TABLET PO SCH (07:59)
[2017-07-13] MEDS: SALINE FLUSH 10 ML DISP.SYRIN IV SCH ×2 (10:08→20:03)
[2017-07-13] MEDS: SILVER SULFADIAZINE 400GM TUBE TP SCH ×2 (11:30→20:02)
[2017-07-13] MEDS: NYSTATIN POWDER BOTTLE TP SCH ×2 (11:30→20:02)
[2017-07-13] MEDS ORDERED: cefTRIAXone SODIUM 1 GM VIAL ONE (15:13)
[2017-07-13] MEDS: cefTRIAXone SODIUM 1 GM in 0.9 % SODIUM CHLORIDE 100 ML IV SCH (15:25)
[2017-07-13] MEDS: ENOXAPARIN SODIUM 60 MG/0.6 ML DISP.SYRIN SQ SCH (15:25)
[2017-07-13] MEDS: KETOROLAC TROMETHAMINE 30 MG/1ML VIAL IVP PRN (18:56)
--- NOTE | 2017-07-13 21:33 | Inpatient Progress Note ---
Subjective - Required Recertification Statement I anticipate X number of days because-include discharge plan: 2 - Review of Systems Events since last encounter: Asuncion is a little stronger today. It took three nurses to get her into her chair today, and I don't think that it is reasonable that she will be going home directly from the hospital. She remains very resistant to going to [facility], however Evelyn is working on this. Her pain is much better controlled using the increased dose of percocet. General: Denies: Chills HEENT: Denies: Head Aches Pulmonary: Dyspnea Cardiovascular: Denies: Chest Pain Gastrointestinal: Denies: Nausea, Vomiting Genitourinary: Denies: Dysuria Musculoskeletal: Leg Pain Neurological: Weakness. Denies: Change in Speech, Confusion Objective - Exam Vitals and I&O: Vital Signs Temp 98.0 F 07/13/17 18:00 Pulse 90 07/13/17 18:00 Resp 21 07/13/17 18:00 BP 108/52 07/13/17 18:00 Pulse Ox 95 07/13/17 18:00 Intake & Output 07/12/17 07/13/17 07/13/17 23:59 11:59 23:59 Intake Total 3370 240 1853 Output Total 1440 500 940 Balance 1930 -260 913 Weight 137.892 kg Intake: IV 1700 3 Right Antecubital 1700 3 Oral 3248 031 7508 Output: Urine 1440 500 940 Other: Voiding Method Indwelling Catheter Indwelling Catheter Indwelling Catheter General: Alert, Oriented to Person, Oriented to Place, Oriented to Time, Morbidly Obese HEENT: Atraumatic, PERRLA, Poor Dentition Neck: Supple Lungs: Clear to auscultation Cardiovascular: Regular rate Abdomen: Normal bowel sounds, Soft, Other (Yeast under breast and pannus) Extremities: Other (Open wounds of both legs are noted) Skin: Normal, Other (sacral ulcers unchanged) Neurological: Normal speech Psych/Mental Status: Mental status NL. No: Intact Judgment - Results Results: Laboratory Results WBC 7.80 K/ul (4.00-12.00) 07/13/17 06:20 RBC 3.68 M/ul (3.90-5.20) L 07/13/17 06:20 Hgb 10.7 g/dL (12.0-16.0) L 07/13/17 06:20 Hct 35.1 % (34.5-46.5) 07/13/17 06:20 MCV 95.3 fl (80.0-100.0) 07/13/17 06:20 MCH 29.1 pg (28.0-34.0) 07/13/17 06:20 MCHC 30.5 g/dL (30.0-36.0) 07/13/17 06:20 RDW 15.5 % (11.3-14.3) H 07/13/17 06:20 Plt Count 352 K/mm3 (130-400) 07/13/17 06:20 Neut % (Auto) 73.0 % (39.0-79.0) 07/12/17 19:20 Lymph % (Auto) 13.5 % (16.0-50.0) L 07/12/17 19:20 [place] % (Auto) 8.6 % (0.0-11.0) 07/12/17 19:20 Eos % (Auto) 1.6 % (0.0-6.8) 07/12/17 19:20 Baso % (Auto) 0.5 (0.0-1.5) 07/12/17 19:20 Neut # (Auto) 5.4 # k/uL (1.4-7.7) 07/12/17 19:20 Lymph # (Auto) 1.0 # k/uL (0.6-4.0) 07/12/17 19:20 [place] # (Auto) 0.6 # k/uL (0.0-0.9) 07/12/17 19:20 Eos # (Auto) 0.1 # k/uL (0.0-0.6) 07/12/17 19:20 Baso # (Auto) 0.0 # k/uL (0.0-0.5) 07/12/17 19:20 Reactive Lymphs % 2.8 % (0.0-5.0) 07/12/17 19:20 Reactive Lymphs # 0.2 # k/uL (0.0-0.8) 07/12/17 19:20 VBG pH 7.42 (7.32-7.43) 07/12/17 20:12 VBG pCO2 at Pat Temp 38 mmHG (40-60) L 07/12/17 20:12 VBG pO2 at Pat Temp 35 mmHg (30-55) 07/12/17 20:12 VBG HCO3 24 mmol/L (22-27) 07/12/17 20:12 VBG O2 Sat (Calc) 66.5 % (40-85) 07/12/17 20:12 VBG Base Excess 0 mmol/L (-2- +2) 07/12/17 20:12 Sodium 140 mmol/L (136-145) 07/13/17 06:20 Potassium 3.9 mmol/L (3.5-5.1) 07/13/17 06:20 Chloride 106 mmol/L (98-107) 07/13/17 06:20 Carbon Dioxide 21 mmol/L (22-30) L 07/13/17 06:20 BUN 16 mg/dL (7-17) 07/13/17 06:20 Creatinine 0.80 mg/dL (0.52-1.04) 07/13/17 06:20 Estimated Creat Clear 189 07/13/17 06:20 Est GFR ( Amer) > 60 (60-) 07/13/17 06:20 Est GFR (Non-Af Amer) > 60 (60-) 07/13/17 06:20 Glucose 124 mg/dL (74-106) H 07/13/17 06:20 Lactate 1.7 U/L (0.7-2.1) 07/12/17 19:20 Calcium 8.8 mg/dL (8.4-10.2) 07/13/17 06:20 Total Bilirubin 0.6 mg/dL (0.2-1.3) 07/13/17 06:20 AST 35 U/L (15-46) 07/13/17 06:20 ALT 31 U/L (13-69) 07/13/17 06:20 Alkaline Phosphatase 152 U/L (38-126) H 07/13/17 06:20 NT-Pro-B Natriuret Pep 2956.0 pg/mL (15.0-125.0) H 07/12/17 06:35 Total Protein 6.4 g/dL (6.3-8.2) 07/13/17 06:20 Albumin 2.9 g/dL (3.5-5.0) L 07/13/17 06:20 Urine Color [place] (YELLOW) 07/11/17 12:37 Urine Appearance Turbid (CLEAR) H 07/11/17 12:37 Urine pH 5.5 (5.0 - 8.0) 07/11/17 12:37 Ur Specific [place] >=1.030 (1.010-1.030) H 07/11/17 12:37 Urine Protein 2+ mg/dL (NEGATIVE) H 07/11/17 12:37 Urine Ketones Negative mg/dL (NEGATIVE) 07/11/17 12:37 Urine Occult Blood 2+ (NEGATIVE) H 07/11/17 12:37 Urine Nitrite Positive (NEGATIVE) H 07/11/17 12:37 Urine Bilirubin Negative (NEGATIVE) 07/11/17 12:37 Urine Urobilinogen 0.2 Eu (0.2-1.0) 07/11/17 12:37 Ur Leukocyte Esterase 1+ (NEGATIVE) H 07/11/17 12:37 Urine Glucose Negative mg/dL (NEGATIVE) 07/11/17 12:37 Assessment/Plan - Assessment/Plan (1) Bilateral lower leg cellulitis Status: Acute Current Visit: Yes Assessment: Improving Plan: Await blood culture, continue empiric antibiotic therapy (2) CHF (congestive heart failure) Status: Acute Current Visit: Yes Qualifiers: Heart failure type: unspecified Heart failure chronicity: chronic Qualified Code(s): I50.9 - Heart failure, unspecified Assessment: Improved (3) UTI (urinary tract infection) Status: Acute Current Visit: Yes Qualifiers: Urinary tract infection type: site unspecified Hematuria presence: without hematuria Qualified Code(s): N39.0 - Urinary tract infection, site not specified Assessment: Culture showing gram negative rods (likely E. coli) Continue ceftriaxone which should cover this. (4) Weakness Status: Acute Current Visit: Yes Assessment: Multifactorial, improved.
[2017-07-14] MEDS: CLINDAMYCIN PHOSPHATE 600 MG in 0.9 % SODIUM CHLORIDE 100 ML IV SCH ×3 (01:06→18:10)
[2017-07-14] MEDS: KETOROLAC TROMETHAMINE 30 MG/1ML VIAL IVP PRN ×3 (02:42→19:29)
[2017-07-14] MEDS: oxyCODONE/ACETAMINOPHEN 5/325 TABLET PO PRN ×3 (03:52→13:09)
[2017-07-14] MEDS: SULFASALAZINE 500 MG TABLET PO SCH ×4 (08:46→19:39)
[2017-07-14] MEDS: METOPROLOL TARTRATE 50 MG TABLET PO SCH ×2 (08:47→19:33)
[2017-07-14] MEDS: GENTAMICIN SULFATE 0.3% OPTH SOL OP SCH ×3 (08:47→17:31)
[2017-07-14] MEDS: GABAPENTIN 100 MG CAPSULE PO SCH ×3 (08:47→17:31)
[2017-07-14] MEDS: FOLIC ACID 1 MG TABLET PO SCH (08:47)
[2017-07-14] MEDS: LISINOPRIL 5 MG TABLET PO SCH (08:48)
[2017-07-14] MEDS: NYSTATIN POWDER BOTTLE TP SCH ×2 (08:48→19:35)
[2017-07-14] MEDS: SALINE FLUSH 10 ML DISP.SYRIN IV SCH ×2 (08:48→19:34)
[2017-07-14] MEDS: SILVER SULFADIAZINE 400GM TUBE TP SCH ×2 (08:48→19:35)
--- NOTE | 2017-07-14 13:10 | Inpatient Progress Note ---
Subjective - Required Recertification Statement I anticipate X number of days because-include discharge plan: 3 - Review of Systems Events since last encounter: Asuncion is still having a fair amount of leg pain, but it is well addressed with the percocet and occasional Toradol. She has not had a BM since she arrived here. Her blood pressure has been stable. Her legs appear to be healing fairly well. General: Denies: Chills, Night Sweats HEENT: Denies: Head Aches Pulmonary: Denies: Dyspnea Cardiovascular: Denies: Chest Pain Gastrointestinal: Constipation. Denies: Nausea, Vomiting Genitourinary: Denies: Dysuria Musculoskeletal: Leg Pain. Denies: Neck Pain Neurological: Denies: Weakness, Numbness, Confusion Objective - Exam Vitals and I&O: Vital Signs Temp 97.0 F L 07/14/17 09:06 Pulse 78 07/14/17 09:06 Resp 20 07/14/17 09:06 BP 148/70 07/14/17 09:06 Pulse Ox 93 07/14/17 09:06 Intake & Output 07/13/17 07/14/17 07/14/17 23:59 11:59 23:59 Intake Total 2103 440 240 Output Total 1490 300 Balance 613 140 240 Intake: IV 3 200 Right Antecubital 3 200 Oral 2100 240 240 Output: Urine 1490 300 Other: Voiding Method Indwelling Catheter Indwelling Catheter General: Alert, Oriented to Person, Oriented to Place, Oriented to Time, Moderate distress (when legs are cleaned/dressed) HEENT: Atraumatic, PERRLA, Poor Dentition Neck: Supple, No JVD Lungs: Respiratory Distress Cardiovascular: Regular rate, Normal S1, Normal S2 Abdomen: Normal bowel sounds, Soft, No tenderness Extremities: Other (Chronic venous stasis changes, open decubiti, 3+ edema) Neurological: Normal speech Psych/Mental Status: Mental status NL - Results Results: Laboratory Results WBC 7.80 K/ul (4.00-12.00) 07/13/17 06:20 RBC 3.68 M/ul (3.90-5.20) L 07/13/17 06:20 Hgb 10.7 g/dL (12.0-16.0) L 07/13/17 06:20 Hct 35.1 % (34.5-46.5) 07/13/17 06:20 MCV 95.3 fl (80.0-100.0) 07/13/17 06:20 MCH 29.1 pg (28.0-34.0) 07/13/17 06:20 MCHC 30.5 g/dL (30.0-36.0) 07/13/17 06:20 RDW 15.5 % (11.3-14.3) H 07/13/17 06:20 Plt Count 352 K/mm3 (130-400) 07/13/17 06:20 Neut % (Auto) 73.0 % (39.0-79.0) 07/12/17 19:20 Lymph % (Auto) 13.5 % (16.0-50.0) L 07/12/17 19:20 [place] % (Auto) 8.6 % (0.0-11.0) 07/12/17 19:20 Eos % (Auto) 1.6 % (0.0-6.8) 07/12/17 19:20 Baso % (Auto) 0.5 (0.0-1.5) 07/12/17 19:20 Neut # (Auto) 5.4 # k/uL (1.4-7.7) 07/12/17 19:20 Lymph # (Auto) 1.0 # k/uL (0.6-4.0) 07/12/17 19:20 [place] # (Auto) 0.6 # k/uL (0.0-0.9) 07/12/17 19:20 Eos # (Auto) 0.1 # k/uL (0.0-0.6) 07/12/17 19:20 Baso # (Auto) 0.0 # k/uL (0.0-0.5) 07/12/17 19:20 Reactive Lymphs % 2.8 % (0.0-5.0) 07/12/17 19:20 Reactive Lymphs # 0.2 # k/uL (0.0-0.8) 07/12/17 19:20 VBG pH 7.42 (7.32-7.43) 07/12/17 20:12 VBG pCO2 at Pat Temp 38 mmHG (40-60) L 07/12/17 20:12 VBG pO2 at Pat Temp 35 mmHg (30-55) 07/12/17 20:12 VBG HCO3 24 mmol/L (22-27) 07/12/17 20:12 VBG O2 Sat (Calc) 66.5 % (40-85) 07/12/17 20:12 VBG Base Excess 0 mmol/L (-2- +2) 07/12/17 20:12 Sodium 140 mmol/L (136-145) 07/13/17 06:20 Potassium 3.9 mmol/L (3.5-5.1) 07/13/17 06:20 Chloride 106 mmol/L (98-107) 07/13/17 06:20 Carbon Dioxide 21 mmol/L (22-30) L 07/13/17 06:20 BUN 16 mg/dL (7-17) 07/13/17 06:20 Creatinine 0.80 mg/dL (0.52-1.04) 07/13/17 06:20 Estimated Creat Clear 189 07/13/17 06:20 Est GFR ( Amer) > 60 (60-) 07/13/17 06:20 Est GFR (Non-Af Amer) > 60 (60-) 07/13/17 06:20 Glucose 124 mg/dL (74-106) H 07/13/17 06:20 Lactate 1.7 U/L (0.7-2.1) 07/12/17 19:20 Calcium 8.8 mg/dL (8.4-10.2) 07/13/17 06:20 Total Bilirubin 0.6 mg/dL (0.2-1.3) 07/13/17 06:20 AST 35 U/L (15-46) 07/13/17 06:20 ALT 31 U/L (13-69) 07/13/17 06:20 Alkaline Phosphatase 152 U/L (38-126) H 07/13/17 06:20 NT-Pro-B Natriuret Pep 2956.0 pg/mL (15.0-125.0) H 07/12/17 06:35 Total Protein 6.4 g/dL (6.3-8.2) 07/13/17 06:20 Albumin 2.9 g/dL (3.5-5.0) L 07/13/17 06:20 Urine Color [place] (YELLOW) 07/11/17 12:37 Urine Appearance Turbid (CLEAR) H 07/11/17 12:37 Urine pH 5.5 (5.0 - 8.0) 07/11/17 12:37 Ur Specific [place] >=1.030 (1.010-1.030) H 07/11/17 12:37 Urine Protein 2+ mg/dL (NEGATIVE) H 07/11/17 12:37 Urine Ketones Negative mg/dL (NEGATIVE) 07/11/17 12:37 Urine Occult Blood 2+ (NEGATIVE) H 07/11/17 12:37 Urine Nitrite Positive (NEGATIVE) H 07/11/17 12:37 Urine Bilirubin Negative (NEGATIVE) 07/11/17 12:37 Urine Urobilinogen 0.2 Eu (0.2-1.0) 07/11/17 12:37 Ur Leukocyte Esterase 1+ (NEGATIVE) H 07/11/17 12:37 Urine Glucose Negative mg/dL (NEGATIVE) 07/11/17 12:37 Assessment/Plan - Assessment/Plan (1) Bilateral lower leg cellulitis Status: Acute Current Visit: Yes Assessment: Slowly healing Plan: Blood cultures showing staph epidermidis (likely contaminant) (2) CHF (congestive heart failure) Status: Acute Current Visit: Yes Qualifiers: Heart failure type: unspecified Heart failure chronicity: chronic Qualified Code(s): I50.9 - Heart failure, unspecified Assessment: improved with Lasix (3) UTI (urinary tract infection) Status: Acute Current Visit: Yes Qualifiers: Urinary tract infection type: site unspecified Hematuria presence: without hematuria Qualified Code(s): N39.0 - Urinary tract infection, site not specified Assessment: On appropriate antibiotics (4) Weakness Status: Acute Current Visit: Yes Assessment: Due to UTI/CHF/leg cellulitis
[2017-07-14] MEDS: POLYETHYLENE GLYCOL 3350 17 GM POWD.PACK PO SCH (13:49)
[2017-07-14] MEDS ORDERED: cefTRIAXone SODIUM 1 GM VIAL ONE (16:37)
[2017-07-14] MEDS: cefTRIAXone SODIUM 1 GM in 0.9 % SODIUM CHLORIDE 100 ML IV SCH (16:53)
[2017-07-14] MEDS: ENOXAPARIN SODIUM 60 MG/0.6 ML DISP.SYRIN SQ SCH (17:29)
[2017-07-14] MEDS: oxyCODONE/ACETAMINOPHEN 5/325 TABLET PO SCH ×2 (17:29→21:04)
[2017-07-15] MEDS: CLINDAMYCIN PHOSPHATE 600 MG in 0.9 % SODIUM CHLORIDE 100 ML IV SCH ×3 (01:15→17:53)
[2017-07-15] MEDS: oxyCODONE/ACETAMINOPHEN 5/325 TABLET PO SCH ×6 (02:11→20:17)
[2017-07-15] MEDS: FOLIC ACID 1 MG TABLET PO SCH (09:51)
[2017-07-15] MEDS: SULFASALAZINE 500 MG TABLET PO SCH ×4 (09:51→20:14)
[2017-07-15] MEDS: NYSTATIN POWDER BOTTLE TP SCH ×2 (09:51→20:15)
[2017-07-15] MEDS: METOPROLOL TARTRATE 50 MG TABLET PO SCH ×2 (09:51→20:15)
[2017-07-15] MEDS: GABAPENTIN 100 MG CAPSULE PO SCH ×3 (09:51→17:10)
[2017-07-15] MEDS: GENTAMICIN SULFATE 0.3% OPTH SOL OP SCH ×3 (09:51→17:10)
[2017-07-15] MEDS: LISINOPRIL 5 MG TABLET PO SCH (09:51)
[2017-07-15] MEDS: SILVER SULFADIAZINE 400GM TUBE TP SCH ×2 (09:52→20:16)
[2017-07-15] MEDS: POLYETHYLENE GLYCOL 3350 17 GM POWD.PACK PO SCH (12:02)
--- NOTE | 2017-07-15 14:52 | Inpatient Progress Note ---
Subjective - Required Recertification Statement I anticipate X number of days because-include discharge plan: 2 - Review of Systems Subjective: Asuncion is feeling a little better, however she is still having some problems with constipation. I started her on Miralax yesterday, but she got no results. Also, urine culture results show her to be resistant to ceftriaxone, so I have started her on Bactrim. Her pain is well controlled, but she is frustrated that night nursing did not wake her up for a pain pill. I discussed with her that this would not be a good idea a she needs sleep, and if sleeping, she is not experiencing pain. She voices understanding of this. She seems to be coming to [employer] with the fact that she will not be strong enough to be discharge to home after leaving the hospital. General: Denies: Chills, Night Sweats HEENT: Denies: Head Aches Pulmonary: Denies: Dyspnea, Cough Cardiovascular: Denies: Chest Pain Gastrointestinal: Denies: Nausea, Vomiting Genitourinary: Denies: Dysuria Musculoskeletal: Denies: Neck Pain, Shoulder Pain Neurological: Weakness, Confusion Objective - Exam Vitals and I&O: Vital Signs Temp 97.1 F L 07/15/17 14:00 Pulse 56 L 07/15/17 14:00 Resp 16 07/15/17 14:00 BP 124/73 07/15/17 14:00 Pulse Ox 92 07/15/17 14:00 Intake & Output 07/14/17 07/15/17 07/15/17 23:59 11:59 23:59 Intake Total 1030 460 520 Output Total 300 450 650 Balance 730 10 -130 Intake: Oral 1030 460 520 Output: Urine 300 450 650 Other: Voiding Method Indwelling Catheter Indwelling Catheter General: Alert, Oriented to Person, Oriented to Place, Oriented to Time HEENT: Atraumatic, Poor Dentition Neck: Supple, No JVD Lungs: Clear to auscultation Cardiovascular: Regular rate Abdomen: Normal bowel sounds, Soft, Distended (due to obesity) Extremities: No clubbing, No cyanosis, Other (Open wounds and extensive venous stasis disease is noted) Skin: Cellulitis Neurological: Normal speech Psych/Mental Status: Mental status NL - Results Results: Laboratory Results WBC 7.80 K/ul (4.00-12.00) 07/13/17 06:20 RBC 3.68 M/ul (3.90-5.20) L 07/13/17 06:20 Hgb 10.7 g/dL (12.0-16.0) L 07/13/17 06:20 Hct 35.1 % (34.5-46.5) 07/13/17 06:20 MCV 95.3 fl (80.0-100.0) 07/13/17 06:20 MCH 29.1 pg (28.0-34.0) 07/13/17 06:20 MCHC 30.5 g/dL (30.0-36.0) 07/13/17 06:20 RDW 15.5 % (11.3-14.3) H 07/13/17 06:20 Plt Count 352 K/mm3 (130-400) 07/13/17 06:20 Neut % (Auto) 73.0 % (39.0-79.0) 07/12/17 19:20 Lymph % (Auto) 13.5 % (16.0-50.0) L 07/12/17 19:20 [place] % (Auto) 8.6 % (0.0-11.0) 07/12/17 19:20 Eos % (Auto) 1.6 % (0.0-6.8) 07/12/17 19:20 Baso % (Auto) 0.5 (0.0-1.5) 07/12/17 19:20 Neut # (Auto) 5.4 # k/uL (1.4-7.7) 07/12/17 19:20 Lymph # (Auto) 1.0 # k/uL (0.6-4.0) 07/12/17 19:20 [place] # (Auto) 0.6 # k/uL (0.0-0.9) 07/12/17 19:20 Eos # (Auto) 0.1 # k/uL (0.0-0.6) 07/12/17 19:20 Baso # (Auto) 0.0 # k/uL (0.0-0.5) 07/12/17 19:20 Reactive Lymphs % 2.8 % (0.0-5.0) 07/12/17 19:20 Reactive Lymphs # 0.2 # k/uL (0.0-0.8) 07/12/17 19:20 VBG pH 7.42 (7.32-7.43) 07/12/17 20:12 VBG pCO2 at Pat Temp 38 mmHG (40-60) L 07/12/17 20:12 VBG pO2 at Pat Temp 35 mmHg (30-55) 07/12/17 20:12 VBG HCO3 24 mmol/L (22-27) 07/12/17 20:12 VBG O2 Sat (Calc) 66.5 % (40-85) 07/12/17 20:12 VBG Base Excess 0 mmol/L (-2- +2) 07/12/17 20:12 Sodium 140 mmol/L (136-145) 07/13/17 06:20 Potassium 3.9 mmol/L (3.5-5.1) 07/13/17 06:20 Chloride 106 mmol/L (98-107) 07/13/17 06:20 Carbon Dioxide 21 mmol/L (22-30) L 07/13/17 06:20 BUN 16 mg/dL (7-17) 07/13/17 06:20 Creatinine 0.80 mg/dL (0.52-1.04) 07/13/17 06:20 Estimated Creat Clear 189 07/13/17 06:20 Est GFR ( Amer) > 60 (60-) 07/13/17 06:20 Est GFR (Non-Af Amer) > 60 (60-) 07/13/17 06:20 Glucose 124 mg/dL (74-106) H 07/13/17 06:20 Lactate 1.7 U/L (0.7-2.1) 07/12/17 19:20 Calcium 8.8 mg/dL (8.4-10.2) 07/13/17 06:20 Total Bilirubin 0.6 mg/dL (0.2-1.3) 07/13/17 06:20 AST 35 U/L (15-46) 07/13/17 06:20 ALT 31 U/L (13-69) 07/13/17 06:20 Alkaline Phosphatase 152 U/L (38-126) H 07/13/17 06:20 NT-Pro-B Natriuret Pep 2956.0 pg/mL (15.0-125.0) H 07/12/17 06:35 Total Protein 6.4 g/dL (6.3-8.2) 07/13/17 06:20 Albumin 2.9 g/dL (3.5-5.0) L 07/13/17 06:20 Urine Color [place] (YELLOW) 07/11/17 12:37 Urine Appearance Turbid (CLEAR) H 07/11/17 12:37 Urine pH 5.5 (5.0 - 8.0) 07/11/17 12:37 Ur Specific [place] >=1.030 (1.010-1.030) H 07/11/17 12:37 Urine Protein 2+ mg/dL (NEGATIVE) H 07/11/17 12:37 Urine Ketones Negative mg/dL (NEGATIVE) 07/11/17 12:37 Urine Occult Blood 2+ (NEGATIVE) H 07/11/17 12:37 Urine Nitrite Positive (NEGATIVE) H 07/11/17 12:37 Urine Bilirubin Negative (NEGATIVE) 07/11/17 12:37 Urine Urobilinogen 0.2 Eu (0.2-1.0) 07/11/17 12:37 Ur Leukocyte Esterase 1+ (NEGATIVE) H 07/11/17 12:37 Urine Glucose Negative mg/dL (NEGATIVE) 07/11/17 12:37 Assessment/Plan - Assessment/Plan (1) Bilateral lower leg cellulitis Status: Acute Current Visit: Yes Assessment: improving (2) CHF (congestive heart failure) Status: Acute Current Visit: Yes Qualifiers: Heart failure type: unspecified Heart failure chronicity: chronic Qualified Code(s): I50.9 - Heart failure, unspecified Assessment: Improved (3) UTI (urinary tract infection) Status: Acute Current Visit: Yes Qualifiers: Urinary tract infection type: site unspecified Hematuria presence: without hematuria Qualified Code(s): N39.0 - Urinary tract infection, site not specified Assessment: Antibiotics changed as above (4) Weakness Status: Acute Current Visit: Yes
[2017-07-15] MEDS: MAGNESIUM CITRATE 296 ML BOTTLE PO ONE ×2 (15:02→20:14)
[2017-07-15] MEDS: ENOXAPARIN SODIUM 60 MG/0.6 ML DISP.SYRIN SQ SCH (17:09)
[2017-07-15] MEDS: SULFAMETHOXAZOLE/TRIMETHOPRIM 1 EACH TABLET PO SCH (20:18)
[2017-07-16] MEDS: oxyCODONE/ACETAMINOPHEN 5/325 TABLET PO SCH ×6 (00:16→21:30)
[2017-07-16] MEDS: CLINDAMYCIN PHOSPHATE 600 MG in 0.9 % SODIUM CHLORIDE 100 ML IV SCH ×4 (00:16→19:18)
[2017-07-16 06:38] LABS: MEAN CORPUSCULAR HEMOGLOBIN 29.6 pg (28.0-34.0); MEAN CORPUSCULAR VOLUME 96.4 fl (80.0-100.0)
[2017-07-16 06:58] LABS: eGFR (African) > 60; eGFR (Non-African) > 60
[2017-07-16] MEDS: FOLIC ACID 1 MG TABLET PO SCH (09:01)
[2017-07-16] MEDS: GABAPENTIN 100 MG CAPSULE PO SCH ×3 (09:01→17:21)
[2017-07-16] MEDS: SULFASALAZINE 500 MG TABLET PO SCH ×4 (09:01→20:12)
[2017-07-16] MEDS: LISINOPRIL 5 MG TABLET PO SCH (09:01)
[2017-07-16] MEDS: SULFAMETHOXAZOLE/TRIMETHOPRIM 1 EACH TABLET PO SCH ×2 (09:02→20:12)
[2017-07-16] MEDS: GENTAMICIN SULFATE 0.3% OPTH SOL OP SCH ×3 (09:02→17:21)
[2017-07-16] MEDS: METOPROLOL TARTRATE 50 MG TABLET PO SCH ×2 (09:02→20:12)
[2017-07-16] MEDS: NYSTATIN POWDER BOTTLE TP SCH ×2 (09:04→20:13)
[2017-07-16] MEDS: SILVER SULFADIAZINE 400GM TUBE TP SCH ×2 (09:05→20:13)
[2017-07-16] MEDS: POLYETHYLENE GLYCOL 3350 17 GM POWD.PACK PO SCH (12:45)
[2017-07-16] MEDS: ENOXAPARIN SODIUM 60 MG/0.6 ML DISP.SYRIN SQ SCH (16:09)
--- NOTE | 2017-07-16 18:15 | Inpatient Progress Note ---
Subjective - Required Recertification Statement I anticipate X number of days because-include discharge plan: 2 - Review of Systems Subjective: We were unable to find a bed for Asuncion today, but Strategic Intelligence Officer is working on several other facilities. Her legs look consistently better. Her pain is better controlled. General: Denies: Chills, Night Sweats HEENT: Denies: Head Aches Pulmonary: Denies: Dyspnea, Cough Cardiovascular: Denies: Chest Pain Gastrointestinal: Denies: Nausea, Vomiting Genitourinary: Denies: Frequency Musculoskeletal: Denies: Neck Pain, Shoulder Pain Neurological: Weakness. Denies: Confusion Objective - Exam Vitals and I&O: Vital Signs Temp 97.8 F 07/16/17 14:00 Pulse 78 07/16/17 14:00 Resp 18 07/16/17 14:00 BP 113/60 07/16/17 14:00 Pulse Ox 92 07/16/17 14:00 Intake & Output 07/15/17 07/16/17 07/16/17 23:59 11:59 23:59 Intake Total 6489 929 2640 Output Total 9953 539 6285 Balance -490 140 -10 Intake: IV 100 left AC 100 Oral 0910 092 2381 Output: Urine 6694 017 4697 Other: Voiding Method Indwelling Catheter Indwelling Catheter Indwelling Catheter # Bowel Movements 1 1 General: Alert, Oriented to Person, Oriented to Place, Oriented to Time, Cooperative HEENT: Atraumatic, PERRLA, EOMI Neck: Supple, No JVD Lungs: Prolonged Expiration, Decreased Air Movement Cardiovascular: Regular rate Abdomen: Normal bowel sounds, Soft, No tenderness Extremities: Other (wounds are healing) Skin: Other (poor integrity in bilateral LE.) Neurological: Normal speech, Cranial nerves 3-12 NL Psych/Mental Status: Mental status NL, Intact Judgment - Results Results: Laboratory Results WBC 9.30 K/ul (4.00-12.00) 07/16/17 06:15 RBC 3.50 M/ul (3.90-5.20) L 07/16/17 06:15 Hgb 10.4 g/dL (12.0-16.0) L 07/16/17 06:15 Hct 33.8 % (34.5-46.5) L 07/16/17 06:15 MCV 96.4 fl (80.0-100.0) 07/16/17 06:15 MCH 29.6 pg (28.0-34.0) 07/16/17 06:15 MCHC 30.7 g/dL (30.0-36.0) 07/16/17 06:15 RDW 15.3 % (11.3-14.3) H 07/16/17 06:15 Plt Count 362 K/mm3 (130-400) 07/16/17 06:15 Neut % (Auto) 73.0 % (39.0-79.0) 07/12/17 19:20 Lymph % (Auto) 13.5 % (16.0-50.0) L 07/12/17 19:20 [place] % (Auto) 8.6 % (0.0-11.0) 07/12/17 19:20 Eos % (Auto) 1.6 % (0.0-6.8) 07/12/17 19:20 Baso % (Auto) 0.5 (0.0-1.5) 07/12/17 19:20 Neut # (Auto) 5.4 # k/uL (1.4-7.7) 07/12/17 19:20 Lymph # (Auto) 1.0 # k/uL (0.6-4.0) 07/12/17 19:20 Jay # (Auto) 0.6 # k/uL (0.0-0.9) 07/12/17 19:20 Eos # (Auto) 0.1 # k/uL (0.0-0.6) 07/12/17 19:20 Baso # (Auto) 0.0 # k/uL (0.0-0.5) 07/12/17 19:20 Reactive Lymphs % 2.8 % (0.0-5.0) 07/12/17 19:20 Reactive Lymphs # 0.2 # k/uL (0.0-0.8) 07/12/17 19:20 VBG pH 7.42 (7.32-7.43) 07/12/17 20:12 VBG pCO2 at Pat Temp 38 mmHG (40-60) L 07/12/17 20:12 VBG pO2 at Pat Temp 35 mmHg (30-55) 07/12/17 20:12 VBG HCO3 24 mmol/L (22-27) 07/12/17 20:12 VBG O2 Sat (Calc) 66.5 % (40-85) 07/12/17 20:12 VBG Base Excess 0 mmol/L (-2- +2) 07/12/17 20:12 Sodium 141 mmol/L (136-145) 07/16/17 06:15 Potassium 4.7 mmol/L (3.5-5.1) 07/16/17 06:15 Chloride 102 mmol/L (98-107) 07/16/17 06:15 Carbon Dioxide 27 mmol/L (22-30) 07/16/17 06:15 BUN 9 mg/dL (7-17) 07/16/17 06:15 Creatinine 0.70 mg/dL (0.52-1.04) 07/16/17 06:15 Estimated Creat Clear 216 07/16/17 06:15 Est GFR ( Amer) > 60 (60-) 07/16/17 06:15 Est GFR (Non-Af Amer) > 60 (60-) 07/16/17 06:15 Glucose 115 mg/dL (74-106) H 07/16/17 06:15 Lactate 1.7 U/L (0.7-2.1) 07/12/17 19:20 Calcium 9.0 mg/dL (8.4-10.2) 07/16/17 06:15 Total Bilirubin 0.6 mg/dL (0.2-1.3) 07/13/17 06:20 AST 35 U/L (15-46) 07/13/17 06:20 ALT 31 U/L (13-69) 07/13/17 06:20 Alkaline Phosphatase 152 U/L (38-126) H 07/13/17 06:20 NT-Pro-B Natriuret Pep 2956.0 pg/mL (15.0-125.0) H 07/12/17 06:35 Total Protein 6.4 g/dL (6.3-8.2) 07/13/17 06:20 Albumin 2.9 g/dL (3.5-5.0) L 07/13/17 06:20 Urine Color [place]alee (YELLOW) 07/11/17 12:37 Urine Appearance Turbid (CLEAR) H 07/11/17 12:37 Urine pH 5.5 (5.0 - 8.0) 07/11/17 12:37 Ur Specific Claude >=1.030 (1.010-1.030) H 07/11/17 12:37 Urine Protein 2+ mg/dL (NEGATIVE) H 07/11/17 12:37 Urine Ketones Negative mg/dL (NEGATIVE) 07/11/17 12:37 Urine Occult Blood 2+ (NEGATIVE) H 07/11/17 12:37 Urine Nitrite Positive (NEGATIVE) H 07/11/17 12:37 Urine Bilirubin Negative (NEGATIVE) 07/11/17 12:37 Urine Urobilinogen 0.2 Eu (0.2-1.0) 07/11/17 12:37 Ur Leukocyte Esterase 1+ (NEGATIVE) H 07/11/17 12:37 Urine Glucose Negative mg/dL (NEGATIVE) 07/11/17 12:37 Assessment/Plan - Assessment/Plan (1) Bilateral lower leg cellulitis Status: Acute Current Visit: Yes Assessment: improved (2) CHF (congestive heart failure) Status: Acute Current Visit: Yes Qualifiers: Heart failure type: unspecified Heart failure chronicity: chronic Qualified Code(s): I50.9 - Heart failure, unspecified Assessment: Stable (3) UTI (urinary tract infection) Status: Acute Current Visit: Yes Qualifiers: Urinary tract infection type: site unspecified Hematuria presence: without hematuria Qualified Code(s): N39.0 - Urinary tract infection, site not specified Assessment: On appropriate antibiotics (4) Weakness Status: Acute Current Visit: Yes Assessment: Multifactorial
[2017-07-17] MEDS: oxyCODONE/ACETAMINOPHEN 5/325 TABLET PO SCH ×6 (01:49→21:08)
[2017-07-17] MEDS: CLINDAMYCIN PHOSPHATE 600 MG in 0.9 % SODIUM CHLORIDE 100 ML IV SCH (01:50)
[2017-07-17] MEDS: SULFAMETHOXAZOLE/TRIMETHOPRIM 1 EACH TABLET PO SCH ×2 (08:18→21:08)
[2017-07-17] MEDS: FOLIC ACID 1 MG TABLET PO SCH (08:18)
[2017-07-17] MEDS: SULFASALAZINE 500 MG TABLET PO SCH ×4 (08:18→21:08)
[2017-07-17] MEDS: GABAPENTIN 100 MG CAPSULE PO SCH ×3 (08:19→17:24)
[2017-07-17] MEDS: GENTAMICIN SULFATE 0.3% OPTH SOL OP SCH ×3 (08:19→17:23)
[2017-07-17] MEDS: NYSTATIN POWDER BOTTLE TP SCH ×2 (08:19→21:09)
[2017-07-17] MEDS: METOPROLOL TARTRATE 50 MG TABLET PO SCH ×2 (08:19→21:11)
[2017-07-17] MEDS: LISINOPRIL 5 MG TABLET PO SCH (08:19)
[2017-07-17] MEDS: SILVER SULFADIAZINE 400GM TUBE TP SCH ×2 (08:19→21:09)
[2017-07-17] MEDS: CLINDAMYCIN HCL 150 MG CAPSULE PO SCH ×4 (10:46→21:08)
[2017-07-17] MEDS: POLYETHYLENE GLYCOL 3350 17 GM POWD.PACK PO SCH (11:00)
[2017-07-17] MEDS: ENOXAPARIN SODIUM 60 MG/0.6 ML DISP.SYRIN SQ SCH (15:53)
[2017-07-18] MEDS: oxyCODONE/ACETAMINOPHEN 5/325 TABLET PO SCH ×6 (01:13→20:59)
[2017-07-18] MEDS: SULFASALAZINE 500 MG TABLET PO SCH ×4 (09:10→21:00)
[2017-07-18] MEDS: SULFAMETHOXAZOLE/TRIMETHOPRIM 1 EACH TABLET PO SCH ×2 (09:10→20:59)
[2017-07-18] MEDS: FOLIC ACID 1 MG TABLET PO SCH (09:11)
[2017-07-18] MEDS: LISINOPRIL 5 MG TABLET PO SCH (09:11)
[2017-07-18] MEDS: GABAPENTIN 100 MG CAPSULE PO SCH ×3 (09:11→16:43)
[2017-07-18] MEDS: NYSTATIN POWDER BOTTLE TP SCH ×2 (09:11→20:05)
[2017-07-18] MEDS: GENTAMICIN SULFATE 0.3% OPTH SOL OP SCH ×3 (09:11→16:39)
[2017-07-18] MEDS: SILVER SULFADIAZINE 400GM TUBE TP SCH ×2 (09:11→20:03)
[2017-07-18] MEDS: CLINDAMYCIN HCL 150 MG CAPSULE PO SCH ×4 (09:11→20:59)
[2017-07-18] MEDS: METOPROLOL TARTRATE 50 MG TABLET PO SCH ×2 (09:11→21:00)
[2017-07-18] MEDS: POLYETHYLENE GLYCOL 3350 17 GM POWD.PACK PO SCH (11:55)
[2017-07-18] MEDS: ENOXAPARIN SODIUM 60 MG/0.6 ML DISP.SYRIN SQ SCH (14:50)
--- NOTE | 2017-07-18 18:11 | Inpatient Progress Note ---
Subjective - Required Recertification Statement I anticipate X number of days because-include discharge plan: 1 - Review of Systems Subjective: information services tech was able to find a bed for Asuncion in [place]. She will be going there by ambulance tomorrow. She is continuing to heal well. General: Denies: Chills, Night Sweats HEENT: Denies: Head Aches Pulmonary: Dyspnea. Denies: Cough Cardiovascular: Denies: Chest Pain Gastrointestinal: Denies: Nausea, Vomiting Genitourinary: Denies: Dysuria, Other Musculoskeletal: Denies: Shoulder Pain Neurological: Denies: Weakness, Change in Speech, Confusion Objective - Exam Vitals and I&O: Vital Signs Temp 99.0 F 07/18/17 17:57 Pulse 75 07/18/17 17:58 Resp 14 07/18/17 17:58 BP 111/52 07/18/17 17:57 Pulse Ox 91 L 07/18/17 17:57 Intake & Output 07/17/17 07/18/17 07/18/17 23:59 11:59 23:59 Intake Total 514 992 8189 Output Total 2050 700 850 Balance -1557 -140 350 Intake: IV 3 120 0 Right Antecubital 3 120 0 Oral 340 289 1655 Output: Urine 2049 700 850 Stool 0 0 Other: Voiding Method Indwelling Catheter Indwelling Catheter Indwelling Catheter # Bowel Movements 1 General: Alert, Oriented to Person, Oriented to Place, Morbidly Obese HEENT: Atraumatic, PERRLA Neck: Supple, No JVD Lungs: Prolonged Expiration. No: Respiratory Distress Cardiovascular: Regular rate, Normal S1, Normal S2 Abdomen: Normal bowel sounds, Soft, No tenderness Extremities: Other (Wounds are healing well) Skin: Other (healing) Neurological: Normal speech Psych/Mental Status: Mental status NL - Results Results: Laboratory Results WBC 9.30 K/ul (4.00-12.00) 07/16/17 06:15 RBC 3.50 M/ul (3.90-5.20) L 07/16/17 06:15 Hgb 10.4 g/dL (12.0-16.0) L 07/16/17 06:15 Hct 33.8 % (34.5-46.5) L 07/16/17 06:15 MCV 96.4 fl (80.0-100.0) 07/16/17 06:15 MCH 29.6 pg (28.0-34.0) 07/16/17 06:15 MCHC 30.7 g/dL (30.0-36.0) 07/16/17 06:15 RDW 15.3 % (11.3-14.3) H 07/16/17 06:15 Plt Count 362 K/mm3 (130-400) 07/16/17 06:15 Neut % (Auto) 73.0 % (39.0-79.0) 07/12/17 19:20 Lymph % (Auto) 13.5 % (16.0-50.0) L 07/12/17 19:20 [place] % (Auto) 8.6 % (0.0-11.0) 07/12/17 19:20 Eos % (Auto) 1.6 % (0.0-6.8) 07/12/17 19:20 Baso % (Auto) 0.5 (0.0-1.5) 07/12/17 19:20 Neut # (Auto) 5.4 # k/uL (1.4-7.7) 07/12/17 19:20 Lymph # (Auto) 1.0 # k/uL (0.6-4.0) 07/12/17 19:20 [place] # (Auto) 0.6 # k/uL (0.0-0.9) 07/12/17 19:20 Eos # (Auto) 0.1 # k/uL (0.0-0.6) 07/12/17 19:20 Baso # (Auto) 0.0 # k/uL (0.0-0.5) 07/12/17 19:20 Reactive Lymphs % 2.8 % (0.0-5.0) 07/12/17 19:20 Reactive Lymphs # 0.2 # k/uL (0.0-0.8) 07/12/17 19:20 VBG pH 7.42 (7.32-7.43) 07/12/17 20:12 VBG pCO2 at Pat Temp 38 mmHG (40-60) L 07/12/17 20:12 VBG pO2 at Pat Temp 35 mmHg (30-55) 07/12/17 20:12 VBG HCO3 24 mmol/L (22-27) 07/12/17 20:12 VBG O2 Sat (Calc) 66.5 % (40-85) 07/12/17 20:12 VBG Base Excess 0 mmol/L (-2- +2) 07/12/17 20:12 Sodium 141 mmol/L (136-145) 07/16/17 06:15 Potassium 4.7 mmol/L (3.5-5.1) 07/16/17 06:15 Chloride 102 mmol/L (98-107) 07/16/17 06:15 Carbon Dioxide 27 mmol/L (22-30) 07/16/17 06:15 BUN 9 mg/dL (7-17) 07/16/17 06:15 Creatinine 0.70 mg/dL (0.52-1.04) 07/16/17 06:15 Estimated Creat Clear 216 07/16/17 06:15 Est GFR ( Amer) > 60 (60-) 07/16/17 06:15 Est GFR (Non-Af Amer) > 60 (60-) 07/16/17 06:15 Glucose 115 mg/dL (74-106) H 07/16/17 06:15 Lactate 1.7 U/L (0.7-2.1) 07/12/17 19:20 Calcium 9.0 mg/dL (8.4-10.2) 07/16/17 06:15 Total Bilirubin 0.6 mg/dL (0.2-1.3) 07/13/17 06:20 AST 35 U/L (15-46) 07/13/17 06:20 ALT 31 U/L (13-69) 07/13/17 06:20 Alkaline Phosphatase 152 U/L (38-126) H 07/13/17 06:20 NT-Pro-B Natriuret Pep 2956.0 pg/mL (15.0-125.0) H 07/12/17 06:35 Total Protein 6.4 g/dL (6.3-8.2) 07/13/17 06:20 Albumin 2.9 g/dL (3.5-5.0) L 07/13/17 06:20 Urine Color Annalee (YELLOW) 07/11/17 12:37 Urine Appearance Turbid (CLEAR) H 07/11/17 12:37 Urine pH 5.5 (5.0 - 8.0) 07/11/17 12:37 Ur Specific [place] >=1.030 (1.010-1.030) H 07/11/17 12:37 Urine Protein 2+ mg/dL (NEGATIVE) H 07/11/17 12:37 Urine Ketones Negative mg/dL (NEGATIVE) 07/11/17 12:37 Urine Occult Blood 2+ (NEGATIVE) H 07/11/17 12:37 Urine Nitrite Positive (NEGATIVE) H 07/11/17 12:37 Urine Bilirubin Negative (NEGATIVE) 07/11/17 12:37 Urine Urobilinogen 0.2 Eu (0.2-1.0) 07/11/17 12:37 Ur Leukocyte Esterase 1+ (NEGATIVE) H 07/11/17 12:37 Urine Glucose Negative mg/dL (NEGATIVE) 07/11/17 12:37 Assessment/Plan - Assessment/Plan (1) Bilateral lower leg cellulitis Status: Acute Current Visit: Yes Assessment: Improving Plan: Transfer to [place] tomorrow (2) CHF (congestive heart failure) Status: Acute Current Visit: Yes Qualifiers: Heart failure type: unspecified Heart failure chronicity: chronic Qualified Code(s): I50.9 - Heart failure, unspecified Assessment: Doing well on lasix and potassium with preserved renal function (3) UTI (urinary tract infection) Status: Acute Current Visit: Yes Qualifiers: Urinary tract infection type: site unspecified Hematuria presence: without hematuria Qualified Code(s): N39.0 - Urinary tract infection, site not specified Assessment: on appropriate antibiotics (4) Weakness Status: Acute Current Visit: Yes
[2017-07-18] MEDS: SCOPOLAMINE HYDROBROMIDE 1.5MG/72HR PATCH TD SCH (20:05)
[2017-07-19] MEDS: oxyCODONE/ACETAMINOPHEN 5/325 TABLET PO SCH ×3 (01:46→09:23)
[2017-07-19 09:07] VITALS: BP 147/71
[2017-07-19] MEDS: GENTAMICIN SULFATE 0.3% OPTH SOL OP SCH (09:17)
[2017-07-19] MEDS: METOPROLOL TARTRATE 50 MG TABLET PO SCH (09:18)
[2017-07-19] MEDS: SULFASALAZINE 500 MG TABLET PO SCH (09:18)
[2017-07-19] MEDS: GABAPENTIN 100 MG CAPSULE PO SCH (09:18)
[2017-07-19] MEDS: SULFAMETHOXAZOLE/TRIMETHOPRIM 1 EACH TABLET PO SCH (09:19)
[2017-07-19] MEDS: LISINOPRIL 5 MG TABLET PO SCH (09:19)
[2017-07-19] MEDS: FOLIC ACID 1 MG TABLET PO SCH (09:19)
[2017-07-19] MEDS: SILVER SULFADIAZINE 400GM TUBE TP SCH (09:19)
[2017-07-19] MEDS: NYSTATIN POWDER BOTTLE TP SCH (09:19)
[2017-07-19] MEDS: CLINDAMYCIN HCL 150 MG CAPSULE PO SCH (09:20)
[2017-07-19] MEDS: SCOPOLAMINE HYDROBROMIDE 1.5MG/72HR PATCH TD SCH (09:23)
[2017-07-19] MEDS: POLYETHYLENE GLYCOL 3350 17 GM POWD.PACK PO SCH (09:45)
--- NOTE | 2017-07-30 15:40 | Discharge Summary ---
DATE OF ADMISSION: July 11, 2017 DATE OF DISCHARGE: July 19, 2017 DIAGNOSES ON THIS HOSPITALIZATION: 1. Recurrent cellulitis on bilateral lower extremities. 2. Morbid obesity. 3. Poor attention hygiene. 4. Rheumatoid arthritis. 5. Chronic venous stasis dermatitis. 6. Dental caries. 7. Hypertension. 8. Crohn's disease. SUMMARIZATION OF ADMISSION HISTORY AND PHYSICAL: This is a 61-year-old female well known to myself who presented with cellulitis of bilateral lower extremities. On admission, she was noted to have remarkably poor attention to hygiene. Her legs were covered with urine and some fecal matter. Her feet were black. It took several days of soaking to get those clean. Her white count was noted to be elevated at 12,800. HOSPITAL COURSE: She was admitted. Attention to her hygiene was addressed. She was showered and not surprisingly her legs began healing significantly well with simple hygiene. She was placed on Clindamycin 150 mg p.o. q.i.d. and Bactrim DS 1 p.o. b.i.d. for her cellulitis. Pain was fairly well controlled using Oxycodone. Occupational therapy and physical therapy saw her for an evaluation , however, she was noncompliant. We had marked difficulty finding placement for her because she has some history with all of our local facilities; however, we were able to find a facility south of [place], I believe, it is called [facility]. She was transferred there with continuation of all of her current medications for continued wound care and physical and occupational therapy. LEELA
== END 2017-07-19 11:05 | disposition home or self-care (01) | DRG 872 ==
LOC: ED 09:30 → SOUTH 14:00
PROVIDERS: ADMIT Family Medicine; ATTEND Family Medicine
DX: A41.9 Sepsis, unspecified organism (principal); L03.116 Cellulitis of left lower limb; L03.115 Cellulitis of right lower limb; R53.1 Weakness; R46.0 Very low level of personal hygiene; E66.01 Morbid (severe) obesity due to excess calories; Z71.3 Dietary counseling and surveillance; I48.91 Unspecified atrial fibrillation; I50.9 Heart failure, unspecified; I10 Essential (primary) hypertension; M06.9 Rheumatoid arthritis, unspecified; Z91.19 Patient's noncompliance with other medical treatment and regimen
CPT/HCPCS: 36415; 36600; 51702; 71045; 80048; 80053; 81002; 82805; 83605; 83880; 85025; 85027; 87040; 87086; 87186; 97530; 97535; A9270; J0696; J1650; J1885; J1940; J3010; J3490; J7030; J7060; 96365; 99222; 99232; 99238; 99284; S1016

== ENCOUNTER 2017-10-06 10:10 | Inpatient (IN) | payer MEDICARE, OTHER ==
--- NOTE | 2017-10-06 10:22 | ED Physician Documentation ---
Dyspnea - HISTORIAN Historian: patient - HPI Stated Complaint: cough Chief Complaint: Cough/ Upper Respiratory Onset: days ago (7) Duration: continues in ED Initiating Event: upper respiratory illness Severity: mild Exacerbated By: nothing Associated Symptoms: other (she just left a rat ex[facility] care facility for cellulitis of her legs ). denies: chills, fever Further Comments: yes (she states she was at a rat exterminator care facility due to cellulitis of her legs (which are improved) but she started to cough over a week ago and they were trying OTC meds for cough and congestion which she felt when she woke up this am is worse. Denies a fever. She states she is coughing up yellow thick phglem.) - ROS CONST: no problems GI/: nausea (she states that she had nausea this am (she did have zofran at home but states she took no meds this am except two percocet) ) NEURO/PSYCH: denies: headache - PAST HX Lung Disease: COPD Cardiac Disease: CHF, A-Fib PE Risk Factors: none Surgeries/Procedures: hysterectomy Other History: other (cellulits and ulcers of lower legs ) Immunizations: UTD Allergies/Adverse Reactions: Allergies Allergy/AdvReac Type Severity Reaction Status Date / Time morphine AdvReac Hallucinati Verified 07/11/17 09:49 ons Home Medications: Ambulatory Orders Medication Instructions Recorded Ondansetron HCl Rapdis [Zofran Odt] 4 mg PO Q4 PRN 10/06/17 oxyCODONE HCL/ACETAMINOPHEN 2 tab PO Q4 PRN 10/06/17 [Percocet 5/325] - SOCIAL HX Smoking History: non-smoker Alcohol Use: none Drug Use: none - FAMILY HX Family History: none - VITAL SIGNS Vital Signs: Vital Signs Temp Pulse Resp BP Pulse Ox 147/71 07/19/17 09:05 - REVIEWED ASSESSMENTS Nursing Assessment Reviewed: Yes Vitals Reviewed: Yes Progress - Progress Progress: 1130: tolerated breathing treatment well. DG 1236: Dr Sun notified and admission will be accepted through him UTI DG ED Results Lab/Radiology - Radiology Radiology Impressions: 2 views the chest Clinical history: Productive cough Findings: The heart size is mildly enlarged. The pulmonary vasculature is normal. No pleural effusion, pneumothorax or alveolar consolidation. Impression: Cardiomegaly without chf Electronically signed on Oct 06, 2017 12:07:20 PM CDT by: Miguel Paredes Dyspnea Physical Exam - EXAM General Appearance: no acute distress, alert EENT: eye inspection normal, ENT inspection normal, no signs of dehydration, ADEN, TM's nml Respiratory: no resp. distress, decreased air movement (RUL ), rhonchi CVS: reg. rate & rhythm, no murmur, no gallop, no friction rub, pulses equal Abdomen: non-tender, no distention Skin: color nml, other (mild redness on right lower leg with wrapping . pulses + cap refil + sensation + ) Extremities: non-tender, normal range of motion, edema (non pitting ) Neuro/Psych: oriented x3, CN's nml as tested, motor nml, sensation nml, mood/ affect nml Discharge Clincal Impression: UTI (urinary tract infection) Qualifiers: Urinary tract infection type: site unspecified Hematuria presence: without hematuria Qualified Code(s): N39.0 - Urinary tract infection, site not specified Condition: Fair Disposition: 09 ADMITTED INPATIENT Decision to Admit: [id number] Date of Decison to Admit: 10/06/17 Decision Time: 12:30
[2017-10-06] MEDS ORDERED: IPRATROPIUM/ALBUTEROL SULFATE 3 ML AMPUL.NEB NEB ONE (10:32)
[2017-10-06] MEDS ORDERED: ONDANSETRON HCL 4 MG TAB.RAPDIS ONE (10:48)
[2017-10-06 11:04] LABS: BASOPHILS % 0.5 (0.0-1.5); MEAN CORPUSCULAR HEMOGLOBIN 29.1 pg (28.0-34.0); MEAN CORPUSCULAR VOLUME 91.3 fl (80.0-100.0); MONOCYTES % 3.6 % (0.0-11.0); NEUTROPHILS # 13.1 # k/uL (1.4-7.7)
[2017-10-06 11:10] LABS: eGFR (African) > 60; eGFR (Non-African) 41
[2017-10-06] MEDS ORDERED: ONDANSETRON HCL 4 MG TAB.RAPDIS PO ONE (11:26)
[2017-10-06] MEDS ORDERED: cefTRIAXone SODIUM 1 GM in 0.9 % SODIUM CHLORIDE 100 ML IV ONE (12:43)
[2017-10-06] MEDS ORDERED: cefTRIAXone SODIUM 1 GM VIAL ONE (12:49)
[2017-10-06] MEDS: LISINOPRIL 10 MG PO SCH ×2 (15:07→20:40)
[2017-10-06] MEDS: GABAPENTIN 100 MG CAPSULE PO SCH ×2 (15:07→18:55)
[2017-10-06] MEDS: FUROSEMIDE 40 MG TABLET PO SCH ×2 (15:07→20:39)
[2017-10-06] MEDS: 0.9 % SODIUM CHLORIDE 1,000 ML IV SCH (15:08)
--- NOTE | 2017-10-06 17:58 | History and Physical Report ---
History of Present Illnes - History of Present Illness Reason for Visit: Sepsis/UTI History of Present Illness: This is a 61 year old female well known to myself who was admitted here a few months ago with bilateral LE cellulitis. This was due to a combination of remarkably poor hygeine, and venous stasis disease. She got home from [facility] two days ago, and then began to feel very weak, had some nausea and generalized weakness. She came to the ER for evaluation of these symptoms this morning and was noted to be septic with hypotension, elevated WBC and gross pyuria. She is admitted for fluid resuscitation as well as IV antibiotics. - Past Medical History Cardiac: HTN, Other (Morbid obesity) Pulmonary: COPD, Other (Smoker) Gastrointestinal: GI bleed, Other (Crohn's disease, advanced dental caries) Heme/Onc: Anemia NOS Psych: Depression Musculoskeletal: Other (rheumatoid arthritis) Rheumatologic: Rheumatoid arthritis Infectious Disease: denies: Other ENT: Other (Advanced dental caries) Renal/: denies: Chronic renal insuff, Acute renal failure Dermatology: Cellulitis (Chronic bilateral LE due to hygeine/venous stasis) - Past Surgical History Past Surgical History: Appendectomy, Other (Thoracotomy for decortication of parapneumonic effusion) - Past Social History Smoke: <1 pack per day, No Occupation: Disabled due to Crohn's disease and arthritis Alcohol: None Drugs: None Lives: Alone (with her dog) Domestic Violence: Negative - Health Maintenance Health Maintenance: Cholesterol Influenza Vaccine: Current for this Influenza Season Pneumonia Vaccine: Yes Resuscitation Status: Resusciation Status Resuscitation Status Full Code Review of Systems - Review of Systems Constitutional: Fever, Chills, Weakness Eyes: negative: pain ENT: negative: Ear Pain, Ear Discharge Respiratory: Cough Cardiovascular: negative: Chest Pain, Palpitations Gastrointestinal: Nausea. negative: Vomiting Genitourinary: Dysuria, Frequency, Incontinence Musculoskeletal: negative: Neck Pain, Shoulder Pain Skin: negative: Rash Neurological: Weakness, Numbness. negative: Confusion - Medications/Allergies Allergies/Adverse Reactions: Allergies Allergy/AdvReac Type Severity Reaction Status Date / Time morphine AdvReac Hallucinati Verified 07/11/17 09:49 ons Home Medications: Home Medications Ondansetron HCl Rapdis [Zofran Odt] 4 mg PO Q4 PRN 10/06/17 oxyCODONE HCL/ACETAMINOPHEN [Percocet 5/325] 2 tab PO Q4 PRN 10/06/17 Current Inpatient Medications: Current Inpatient Medications Albuterol/Ipratropium (Duoneb) 3 ml NEB Q4 [facility] Folic Acid (Folvite) 1 mg PO DAILY [facility] Furosemide (Lasix) 40 mg PO BID [facility] Last Admin: 10/06/17 15:07 Dose: Not Given Gabapentin (Neurontin) 100 mg PO TID [facility] Last Admin: 10/06/17 15:07 Dose: Not Given Sodium Chloride (Normal Saline) 1,000 mls @ 100 mls/hr IV Q10H [facility] Last Admin: 10/06/17 15:08 Dose: 100 mls/hr Methotrexate (Rheumatrex) 30 mg PO WEEK [facility] Metoprolol Tartrate (Lopressor) 50 mg PO BID [facility] Miscellaneous (Lisinopril [Lisinopril]) 10 mg PO BID [facility] Last Admin: 10/06/17 15:07 Dose: Not Given Ondansetron HCl (Zofran Odt) 4 mg PO Q4 PRN PRN Reason: Nausea / Vomiting Oxycodone/Acetaminophen (Percocet 5-325 Mg Tablet) 1 each PO Q4 PRN PRN Reason: Severe Pain Exam - Exam Vital Signs: Vital Signs (72 hours) 10/06/17 13:56 Pulse Rate [ 98 H Right Pulse ox] Respiratory 24 Rate Blood Pressure 110/68 [Right Arm] O2 Sat by Pulse 95 Oximetry General: Alert, Oriented to Person, Cooperative, Discheveled, Obese HEENT: Atraumatic, PERRLA, Poor Dentition Neck: No: Stridor Lungs: Normal air movement Cardiovascular: Regular rate, Normal S1, Normal S2 Murmur: Systolic Murmur Heart Murmur Grade: II Abdomen: Normal bowel sounds, Soft, No tenderness Genitourinary: No: Other Male Genitourinary: No: Other Female Genitourinary: No: Other Integumentary: Cellulitis (mild), Ulcer (right posterior leg, right anterior leg ) Extremities: Other (Chronic venous stasis changes) Neurological: Normal gait, Normal speech Psych/Mental Status: Mental status NL Assessment/Plan - Assessment/Plan (1) Sepsis Status: Acute Current Visit: Yes Assessment: Start Rocephin Blood and urine cultures are pending (2) UTI (urinary tract infection) Status: Acute Current Visit: Yes Qualifiers: Urinary tract infection type: site unspecified Hematuria presence: without hematuria Qualified Code(s): N39.0 - Urinary tract infection, site not specified Assessment: Continue rocephin (3) Bilateral lower leg cellulitis Status: Acute Current Visit: No Assessment: Markedly improved after long term stay (4) Hypovolemia Status: Acute Current Visit: No Assessment: Continue IVF (5) Obesity Status: Acute Current Visit: No Qualifiers: Obesity type: unspecified obesity type Obesity classification: adult class 3 (BMI >= 40) Serious obesity comorbidity presence: with serious comorbidity Body mass index: BMI 45.0-49.9 Qualified Code(s): E66.9 - Obesity, unspecified; Z68.42 - Body mass index (BMI) 45.0-49.9, adult; Z68.42 - Body mass index (BMI) 45.0-49.9, adult; Z68.42 - Body mass index (BMI) 45.0-49.9, adult; Z68.42 - Body mass index (BMI) 45.0-49.9, adult (6) Rheumatoid arthritis Status: Acute Current Visit: No Qualifiers: Rheumatoid arthritis location: hand Rheumatoid factor presence: with rheumatoid factor Laterality: bilateral Qualified Code(s): M05.741 - Rheumatoid arthritis with rheumatoid factor of right hand without organ or systems involvement Assessment: Continue methotrexate/folic acid VTE Assessment - RISK FACTOR SCORE VTE RISK FACTOR SCORES: AGE OVER 60 YEARS, ACUTE INFECTION OTHER THEN SEPSIS - RISK VTE MODERATE RISK: SCORE OF 2 (RISK PROXIMAL DVT 2-4%) PROPHYAXIS NEEDED ( Started on Lovenox)
[2017-10-06] MEDS: IPRATROPIUM/ALBUTEROL SULFATE 3 ML AMPUL.NEB NEB SCH ×2 (18:00→18:43)
[2017-10-06] MEDS ORDERED: METHOTREXATE SODIUM 2.5 MG TABLET PO SCH (18:00)
--- NOTE | 2017-10-06 18:21 | Diagnostic Imaging Report ---
GERARDO KAN [facility] [id number] [facility] [address] [place], [place]. [address] Report Submission Date: Oct 06, 2017 12:07:20 PM CDT Patient Study Name: JUANIS DANIELS Date: Oct 06, 2017 11:23:26 AM CDT Modality Type: DX Gender: F Description: CHEST : 55 Institution: [facility] Physician: GERARDO KAN 2 views the chest Clinical history: Productive cough Findings: The heart size is mildly enlarged. The pulmonary vasculature is normal. No pleural effusion, pneumothorax or alveolar consolidation. Impression: Cardiomegaly without chf Electronically signed on Oct 06, 2017 12:07:20 PM CDT by: Miguel SWENSON
[2017-10-06] MEDS ORDERED: SILVER SULFADIAZINE 25 GM 1 APPL TUBE TP ONE (18:23)
[2017-10-06] MEDS: oxyCODONE/ACETAMINOPHEN 5/325 TABLET PO PRN (19:28)
[2017-10-06 20:02] VITALS: BMI 41.5
[2017-10-06] MEDS ORDERED: LISINOPRIL 5 MG TABLET ONE (20:32)
[2017-10-06] MEDS: METOPROLOL TARTRATE 50 MG TABLET PO SCH (20:39)
[2017-10-06] MEDS: MENTHOL MM SCH ×4 (20:41→23:27)
[2017-10-06] MEDS: PHENOL MM SCH ×4 (20:41→23:27)
[2017-10-06] MEDS: ONDANSETRON HCL 4 MG TAB.RAPDIS PO PRN (21:00)
[2017-10-06] MEDS: SULFASALAZINE 500 MG TABLET PO SCH (23:32)
[2017-10-07] MEDS: IPRATROPIUM/ALBUTEROL SULFATE 3 ML AMPUL.NEB NEB SCH ×6 (00:08→21:30)
[2017-10-07] MEDS: PHENOL MM SCH ×16 (02:12→23:28)
[2017-10-07] MEDS: MENTHOL MM SCH ×16 (02:12→23:28)
[2017-10-07] MEDS: 0.9 % SODIUM CHLORIDE 1,000 ML IV SCH ×4 (02:13→19:25)
[2017-10-07] MEDS ORDERED: LISINOPRIL 5 MG TABLET ONE ×3 (02:20→20:47)
[2017-10-07 07:21] LABS: BASOPHILS % 0.6 (0.0-1.5); EOSINOPHILS % 0.7 % (0.0-6.8); MEAN CORPUSCULAR HEMOGLOBIN 28.6 pg (28.0-34.0); MEAN CORPUSCULAR VOLUME 97.4 fl (80.0-100.0); MONOCYTES % 4.6 % (0.0-11.0); NEUTROPHILS # 10.7 # k/uL (1.4-7.7)
[2017-10-07 07:33] LABS: APPEARANCE,URINE TURBID (CLEAR); COLOR,URINE YELLOW (YELLOW); OCCULT BLOOD,URINE 2+ (NEGATIVE); UROBILINOGEN URINE 0.2 Eu (0.2-1.0)
[2017-10-07] MEDS ORDERED: PHARMACY KEY 1 EACH EACH MC ONE (09:37)
[2017-10-07] MEDS: FUROSEMIDE 40 MG TABLET PO SCH ×2 (09:46→20:52)
[2017-10-07] MEDS: GABAPENTIN 100 MG CAPSULE PO SCH ×3 (09:46→17:52)
[2017-10-07] MEDS: LISINOPRIL 10 MG PO SCH ×2 (09:46→20:52)
[2017-10-07] MEDS: METOPROLOL TARTRATE 50 MG TABLET PO SCH ×2 (09:47→20:52)
[2017-10-07] MEDS: FOLIC ACID 1 MG TABLET PO SCH (09:48)
[2017-10-07] MEDS: SULFASALAZINE 500 MG TABLET PO SCH ×4 (09:48→20:51)
[2017-10-07] MEDS: oxyCODONE/ACETAMINOPHEN 5/325 TABLET PO PRN ×2 (09:55→19:21)
--- NOTE | 2017-10-07 12:09 | Inpatient Progress Note ---
Subjective - Required Recertification Statement I anticipate X number of days because-include discharge plan: 2 - Review of Systems Events since last encounter: Asuncion is feeling a little better today. Her white count is still elevated, but coming down. She is eating well. She is still feeling weak. General: Denies: Chills HEENT: Denies: Head Aches Pulmonary: Dyspnea, Cough Cardiovascular: Denies: Chest Pain, Palpitations Gastrointestinal: Denies: Nausea, Vomiting Genitourinary: Dysuria, Incontinence (chronic). Denies: Frequency Musculoskeletal: Denies: Neck Pain Neurological: Weakness Objective - Exam Vitals and I&O: Vital Signs Temp 98.8 F 10/07/17 05:58 Pulse 101 H 10/07/17 05:58 Resp 20 10/07/17 05:58 BP 102/59 10/07/17 05:58 Pulse Ox 97 10/07/17 05:58 Intake & Output 10/06/17 10/07/17 10/07/17 23:59 11:59 23:59 Intake Total 1860 1320 Balance 1860 1320 Weight 120.202 kg 246 kg Intake: Oral 660 120 Other 1200 1200 Other: Voiding Method Toilet # Voids 0 0 General: Alert, Oriented to Person, Oriented to Place, Oriented to Time, Cooperative HEENT: Atraumatic, PERRLA Neck: Supple, No JVD Lungs: Wheezes, Prolonged Expiration, Decreased Air Movement Cardiovascular: Regular rate Abdomen: Normal bowel sounds, Vental Hernia Extremities: No clubbing, Other (Chronic venous stasis changes, open wounds as noted on H&P) Neurological: Normal gait Psych/Mental Status: Mental status NL - Results Results: Laboratory Results WBC 12.90 K/ul (4.00-12.00) H 10/07/17 07:05 RBC 3.94 M/ul (3.90-5.20) 10/07/17 07:05 Hgb 11.3 g/dL (12.0-16.0) L 10/07/17 07:05 Hct 38.3 % (34.5-46.5) 10/07/17 07:05 MCV 97.4 fl (80.0-100.0) 10/07/17 07:05 MCH 28.6 pg (28.0-34.0) 10/07/17 07:05 MCHC 29.4 g/dL (30.0-36.0) L 10/07/17 07:05 RDW 15.8 % (11.3-14.3) H 10/07/17 07:05 Plt Count 267 K/mm3 (130-400) 10/07/17 07:05 Neut % (Auto) 83.2 % (39.0-79.0) H 10/07/17 07:05 Lymph % (Auto) 8.6 % (16.0-50.0) L 10/07/17 07:05 [place] % (Auto) 4.6 % (0.0-11.0) 10/07/17 07:05 Eos % (Auto) 0.7 % (0.0-6.8) 10/07/17 07:05 Baso % (Auto) 0.6 (0.0-1.5) 10/07/17 07:05 Neut # (Auto) 10.7 # k/uL (1.4-7.7) H 10/07/17 07:05 Lymph # (Auto) 1.1 # k/uL (0.6-4.0) 10/07/17 07:05 [place] # (Auto) 0.6 # k/uL (0.0-0.9) 10/07/17 07:05 Eos # (Auto) 0.1 # k/uL (0.0-0.6) 10/07/17 07:05 Baso # (Auto) 0.1 # k/uL (0.0-0.5) 10/07/17 07:05 Reactive Lymphs % 2.4 % (0.0-5.0) 10/07/17 07:05 Reactive Lymphs # 0.3 # k/uL (0.0-0.8) 10/07/17 07:05 Sodium 145 mmol/L (136-145) 10/07/17 07:05 Potassium 3.9 mmol/L (3.5-5.1) 10/07/17 07:05 Chloride 110 mmol/L (98-107) H 10/07/17 07:05 Carbon Dioxide 20 mmol/L (22-30) L 10/07/17 07:05 BUN 45 mg/dL (7-17) H 10/07/17 07:05 Creatinine 1.70 mg/dL (0.52-1.04) H 10/07/17 07:05 Estimated Creat Clear 158 10/07/17 07:05 Est GFR ( Amer) 39 (60-) L 10/07/17 07:05 Est GFR (Non-Af Amer) 32 (60-) L 10/07/17 07:05 Glucose 133 mg/dL (74-106) H 10/07/17 07:05 Lactate 1.3 U/L (0.7-2.1) 10/06/17 12:26 Calcium 8.9 mg/dL (8.4-10.2) 10/07/17 07:05 Total Bilirubin 0.1 mg/dL (0.2-1.3) L 10/07/17 07:05 AST 28 U/L (15-46) 10/07/17 07:05 ALT 19 U/L (13-69) 10/07/17 07:05 Alkaline Phosphatase 138 U/L (38-126) H 10/07/17 07:05 NT-Pro-B Natriuret Pep 655.9 pg/mL (15.0-125.0) H 10/06/17 10:51 Total Protein 9.1 g/dL (6.3-8.2) H 10/07/17 07:05 Albumin 4.0 g/dL (3.5-5.0) 10/07/17 07:05 Urine Color Yellow (YELLOW) 10/06/17 12:33 Urine Appearance Turbid (CLEAR) H 10/06/17 12:33 Urine pH 5.0 (5.0 - 8.0) 10/06/17 12:33 Ur Specific [place] 1.025 (1.010-1.030) 10/06/17 12:33 Urine Protein 2+ mg/dL (NEGATIVE) H 10/06/17 12:33 Urine Ketones Trace mg/dL (NEGATIVE) H 10/06/17 12:33 Urine Occult Blood 2+ (NEGATIVE) H 10/06/17 12:33 Urine Nitrite Negative (NEGATIVE) 10/06/17 12:33 Urine Bilirubin 3+ (NEGATIVE) H 10/06/17 12:33 Urine Urobilinogen 0.2 Eu (0.2-1.0) 10/06/17 12:33 Ur Leukocyte Esterase 3+ (NEGATIVE) H 10/06/17 12:33 Urine Glucose Negative mg/dL (NEGATIVE) 10/06/17 12:33 Assessment/Plan - Assessment/Plan (1) Sepsis Status: Acute Current Visit: Yes Qualifiers: Sepsis type: sepsis due to unspecified organism Qualified Code(s): A41.9 - Sepsis, unspecified organism Assessment: Continue current antibiotics (ceftriaxone) (2) UTI (urinary tract infection) Status: Acute Current Visit: Yes Qualifiers: Urinary tract infection type: site unspecified Hematuria presence: without hematuria Qualified Code(s): N39.0 - Urinary tract infection, site not specified Assessment: Continue ceftriaxone (3) Bilateral lower leg cellulitis Status: Acute Current Visit: No Assessment: Chronic and markedly improved (4) Hypovolemia Status: Acute Current Visit: No Assessment: Continue IVF (5) Obesity Status: Acute Current Visit: No Qualifiers: Obesity type: unspecified obesity type Obesity classification: adult class 3 (BMI >= 40) Serious obesity comorbidity presence: with serious comorbidity Body mass index: BMI 45.0-49.9 Qualified Code(s): E66.9 - Obesity, unspecified; Z68.42 - Body mass index (BMI) 45.0-49.9, adult; Z68.42 - Body mass index (BMI) 45.0-49.9, adult; Z68.42 - Body mass index (BMI) 45.0-49.9, adult; Z68.42 - Body mass index (BMI) 45.0-49.9, adult Assessment: Chronic (6) Rheumatoid arthritis Status: Acute Current Visit: No Qualifiers: Rheumatoid arthritis location: hand Rheumatoid factor presence: with rheumatoid factor Laterality: bilateral Qualified Code(s): M05.741 - Rheumatoid arthritis with rheumatoid factor of right hand without organ or systems involvement Assessment: Continue Methotrexate and folic acid
[2017-10-07] MEDS ORDERED: FUROSEMIDE 20 MG TABLET PO ONE (13:21)
[2017-10-07] MEDS: ALOE VERA TP PRN (13:53)
[2017-10-07] MEDS: TROLAMINE SALICYLATE TP PRN (13:53)
[2017-10-07] MEDS ORDERED: cefTRIAXone SODIUM 1 GM VIAL ONE (19:05)
[2017-10-07] MEDS: cefTRIAXone SODIUM 1 GM in 0.9 % SODIUM CHLORIDE 50 ML IV SCH (19:23)
[2017-10-08] MEDS: MENTHOL MM SCH ×20 (00:55→22:41)
[2017-10-08] MEDS: PHENOL MM SCH ×20 (00:55→22:41)
[2017-10-08] MEDS: oxyCODONE/ACETAMINOPHEN 5/325 TABLET PO PRN ×3 (00:56→20:13)
[2017-10-08] MEDS: 0.9 % SODIUM CHLORIDE 1,000 ML IV SCH (04:32)
[2017-10-08] MEDS: IPRATROPIUM/ALBUTEROL SULFATE 3 ML AMPUL.NEB NEB SCH ×7 (06:35→20:14)
--- NOTE | 2017-10-08 09:29 | Inpatient Progress Note ---
Subjective - Required Recertification Statement I anticipate X number of days because-include discharge plan: 2 - Review of Systems Events since last encounter: Asuncion is eating a little better. She is not having any further fevers. She is drinking fairly well. Her legs are weeping , but have no evidence of recurrent cellulitis. General: Denies: Chills, Night Sweats HEENT: Sore Throat. Denies: Head Aches Pulmonary: Dyspnea, Cough Cardiovascular: Denies: Chest Pain Gastrointestinal: Denies: Nausea, Vomiting Genitourinary: Denies: Dysuria Musculoskeletal: Denies: Neck Pain, Leg Pain Neurological: Weakness. Denies: Change in Speech, Confusion Objective - Exam Vitals and I&O: Vital Signs Temp 98.9 F 10/08/17 06:00 Pulse 88 10/08/17 06:00 Resp 18 10/08/17 06:00 BP 108/56 10/08/17 06:00 Pulse Ox 94 10/08/17 06:00 Intake & Output 10/07/17 10/07/17 10/08/17 11:59 23:59 11:59 Intake Total 1560 1560 200 Balance 1560 1560 200 Weight 246 kg 262 kg Intake: Oral 360 1560 200 Other 1200 Other: Voiding Method Toilet Incontinent # Voids 0 3 3 General: Alert, Oriented to Person, Oriented to Place, Discheveled HEENT: Atraumatic Neck: Supple, No JVD Lungs: Prolonged Expiration, Decreased Air Movement Cardiovascular: Regular rate Abdomen: Normal bowel sounds, Soft Extremities: No clubbing, No cyanosis, Other (Chronic venous stasis changes) Neurological: Normal speech Psych/Mental Status: Mental status NL - Results Results: Laboratory Results WBC 12.90 K/ul (4.00-12.00) H 10/07/17 07:05 RBC 3.94 M/ul (3.90-5.20) 10/07/17 07:05 Hgb 11.3 g/dL (12.0-16.0) L 10/07/17 07:05 Hct 38.3 % (34.5-46.5) 10/07/17 07:05 MCV 97.4 fl (80.0-100.0) 10/07/17 07:05 MCH 28.6 pg (28.0-34.0) 10/07/17 07:05 MCHC 29.4 g/dL (30.0-36.0) L 10/07/17 07:05 RDW 15.8 % (11.3-14.3) H 10/07/17 07:05 Plt Count 267 K/mm3 (130-400) 10/07/17 07:05 Neut % (Auto) 83.2 % (39.0-79.0) H 10/07/17 07:05 Lymph % (Auto) 8.6 % (16.0-50.0) L 10/07/17 07:05 [place] % (Auto) 4.6 % (0.0-11.0) 10/07/17 07:05 Eos % (Auto) 0.7 % (0.0-6.8) 10/07/17 07:05 Baso % (Auto) 0.6 (0.0-1.5) 10/07/17 07:05 Neut # (Auto) 10.7 # k/uL (1.4-7.7) H 10/07/17 07:05 Lymph # (Auto) 1.1 # k/uL (0.6-4.0) 10/07/17 07:05 [place] # (Auto) 0.6 # k/uL (0.0-0.9) 10/07/17 07:05 Eos # (Auto) 0.1 # k/uL (0.0-0.6) 10/07/17 07:05 Baso # (Auto) 0.1 # k/uL (0.0-0.5) 10/07/17 07:05 Reactive Lymphs % 2.4 % (0.0-5.0) 10/07/17 07:05 Reactive Lymphs # 0.3 # k/uL (0.0-0.8) 10/07/17 07:05 Sodium 145 mmol/L (136-145) 10/07/17 07:05 Potassium 3.9 mmol/L (3.5-5.1) 10/07/17 07:05 Chloride 110 mmol/L (98-107) H 10/07/17 07:05 Carbon Dioxide 20 mmol/L (22-30) L 10/07/17 07:05 BUN 45 mg/dL (7-17) H 10/07/17 07:05 Creatinine 1.70 mg/dL (0.52-1.04) H 10/07/17 07:05 Estimated Creat Clear 158 10/07/17 07:05 Est GFR ( Amer) 39 (60-) L 10/07/17 07:05 Est GFR (Non-Af Amer) 32 (60-) L 10/07/17 07:05 Glucose 133 mg/dL (74-106) H 10/07/17 07:05 Lactate 1.3 U/L (0.7-2.1) 10/06/17 12:26 Calcium 8.9 mg/dL (8.4-10.2) 10/07/17 07:05 Total Bilirubin 0.1 mg/dL (0.2-1.3) L 10/07/17 07:05 AST 28 U/L (15-46) 10/07/17 07:05 ALT 19 U/L (13-69) 10/07/17 07:05 Alkaline Phosphatase 138 U/L (38-126) H 10/07/17 07:05 NT-Pro-B Natriuret Pep 655.9 pg/mL (15.0-125.0) H 10/06/17 10:51 Total Protein 9.1 g/dL (6.3-8.2) H 10/07/17 07:05 Albumin 4.0 g/dL (3.5-5.0) 10/07/17 07:05 Urine Color Yellow (YELLOW) 10/06/17 12:33 Urine Appearance Turbid (CLEAR) H 10/06/17 12:33 Urine pH 5.0 (5.0 - 8.0) 10/06/17 12:33 Ur Specific [place] 1.025 (1.010-1.030) 10/06/17 12:33 Urine Protein 2+ mg/dL (NEGATIVE) H 10/06/17 12:33 Urine Ketones Trace mg/dL (NEGATIVE) H 10/06/17 12:33 Urine Occult Blood 2+ (NEGATIVE) H 10/06/17 12:33 Urine Nitrite Negative (NEGATIVE) 10/06/17 12:33 Urine Bilirubin 3+ (NEGATIVE) H 10/06/17 12:33 Urine Urobilinogen 0.2 Eu (0.2-1.0) 10/06/17 12:33 Ur Leukocyte Esterase 3+ (NEGATIVE) H 10/06/17 12:33 Urine Glucose Negative mg/dL (NEGATIVE) 10/06/17 12:33 Assessment/Plan - Assessment/Plan (1) Sepsis Status: Acute Current Visit: Yes Qualifiers: Sepsis type: sepsis due to unspecified organism Qualified Code(s): A41.9 - Sepsis, unspecified organism Assessment: Improved with current antibiotic therapy (2) UTI (urinary tract infection) Status: Acute Current Visit: Yes Qualifiers: Urinary tract infection type: site unspecified Hematuria presence: without hematuria Qualified Code(s): N39.0 - Urinary tract infection, site not specified Assessment: urine cultures pending Continue current antibiotic therapy (3) Bilateral lower leg cellulitis Status: Acute Current Visit: No (4) Hypovolemia Status: Acute Current Visit: No Plan: Improved Will d/c IVF (5) Obesity Status: Acute Current Visit: No Qualifiers: Obesity type: unspecified obesity type Obesity classification: adult class 3 (BMI >= 40) Serious obesity comorbidity presence: with serious comorbidity Body mass index: BMI 45.0-49.9 Qualified Code(s): E66.9 - Obesity, unspecified; Z68.42 - Body mass index (BMI) 45.0-49.9, adult; Z68.42 - Body mass index (BMI) 45.0-49.9, adult; Z68.42 - Body mass index (BMI) 45.0-49.9, adult; Z68.42 - Body mass index (BMI) 45.0-49.9, adult (6) Rheumatoid arthritis Status: Acute Current Visit: No Qualifiers: Rheumatoid arthritis location: hand Rheumatoid factor presence: with rheumatoid factor Laterality: bilateral Qualified Code(s): M05.741 - Rheumatoid arthritis with rheumatoid factor of right hand without organ or systems involvement
[2017-10-08] MEDS: SULFASALAZINE 500 MG TABLET PO SCH ×4 (09:35→20:13)
[2017-10-08] MEDS: FOLIC ACID 1 MG TABLET PO SCH (09:36)
[2017-10-08] MEDS: METOPROLOL TARTRATE 50 MG TABLET PO SCH ×2 (09:36→20:13)
[2017-10-08] MEDS: GABAPENTIN 100 MG CAPSULE PO SCH ×3 (09:36→18:02)
[2017-10-08] MEDS: FUROSEMIDE 40 MG TABLET PO SCH ×2 (09:36→20:13)
[2017-10-08] MEDS: LISINOPRIL 10 MG PO SCH (09:36)
[2017-10-08 12:39] LABS: MEAN CORPUSCULAR HEMOGLOBIN 28.9 pg (28.0-34.0); MEAN CORPUSCULAR VOLUME 91.4 fl (80.0-100.0)
[2017-10-08] MEDS ORDERED: LISINOPRIL 5 MG TABLET ONE (12:42)
[2017-10-08 13:03] LABS: eGFR (African) > 60; eGFR (Non-African) > 60
[2017-10-08] MEDS: ONDANSETRON HCL 4 MG TAB.RAPDIS PO PRN (13:10)
[2017-10-08] MEDS ORDERED: cefTRIAXone SODIUM 1 GM VIAL ONE (19:51)
[2017-10-08] MEDS: LISINOPRIL 5 MG TABLET PO SCH (20:13)
[2017-10-08] MEDS: cefTRIAXone SODIUM 1 GM in 0.9 % SODIUM CHLORIDE 50 ML IV SCH (20:14)
[2017-10-08] MEDS: TROLAMINE SALICYLATE TP PRN (20:45)
[2017-10-08] MEDS: ALOE VERA TP PRN (20:45)
[2017-10-09] MEDS: MENTHOL MM SCH ×14 (01:38→14:42)
[2017-10-09] MEDS: PHENOL MM SCH ×14 (01:38→14:42)
[2017-10-09] MEDS: IPRATROPIUM/ALBUTEROL SULFATE 3 ML AMPUL.NEB NEB SCH ×4 (01:46→14:30)
[2017-10-09] MEDS: LISINOPRIL 5 MG TABLET PO SCH (08:55)
[2017-10-09] MEDS: FOLIC ACID 1 MG TABLET PO SCH (08:55)
[2017-10-09] MEDS: GABAPENTIN 100 MG CAPSULE PO SCH ×2 (08:57→13:53)
[2017-10-09] MEDS: FUROSEMIDE 40 MG TABLET PO SCH (08:57)
[2017-10-09] MEDS: METOPROLOL TARTRATE 50 MG TABLET PO SCH (08:57)
[2017-10-09] MEDS: SULFASALAZINE 500 MG TABLET PO SCH ×2 (08:59→13:52)
[2017-10-09] MEDS: oxyCODONE/ACETAMINOPHEN 5/325 TABLET PO PRN (09:05)
--- NOTE | 2017-10-10 00:32 | Inpatient Progress Note ---
Subjective - Required Recertification Statement I anticipate X number of days because-include discharge plan: 1 - Review of Systems Events since last encounter: Asuncion declined therapy yesterday. She said that this is because she was nauseated. She says that she will participate in therapy today. We discussed that if she is unwilling to participate in therapy, that we will need to look at halfway placement as she is not strong enough to make it at home in her current condition. She states understanding of this. General: Denies: Chills, Night Sweats HEENT: Denies: Head Aches Pulmonary: Dyspnea, Cough Cardiovascular: Denies: Chest Pain, Palpitations Gastrointestinal: Nausea (improved). Denies: Vomiting Genitourinary: Denies: Dysuria, Frequency Musculoskeletal: Denies: Leg Pain Neurological: Weakness. Denies: Change in Speech, Confusion Objective - Exam Vitals and I&O: Vital Signs Temp 98.2 F 10/09/17 05:18 Pulse 85 10/09/17 05:18 Resp 20 10/09/17 05:18 BP 134/76 10/09/17 05:18 Pulse Ox 98 10/09/17 05:18 Intake & Output 10/08/17 10/08/17 10/09/17 11:59 23:59 11:59 Intake Total 440 1070 680 Balance 440 1070 680 Weight 262 kg 119.09 kg 251.5 kg Intake: IV 50 Left Forearm 50 Oral 440 1020 680 Other: Voiding Method Bedside Commode Bedside Commode Bedside Commode # Voids 3 1 # Bowel Movements 0 General: Alert, Oriented to Person, Oriented to Place, Oriented to Time, Discheveled, Obese HEENT: Atraumatic, PERRLA, EOMI, Poor Dentition Neck: Supple, No JVD Lungs: Wheezes, Prolonged Expiration, Decreased Air Movement Cardiovascular: Regular rate Abdomen: Normal bowel sounds Extremities: Other (Chronic venous stasis changes) Neurological: Normal speech Psych/Mental Status: Mental status NL - Results Results: Laboratory Results WBC 10.80 K/ul (4.00-12.00) 10/08/17 12:30 RBC 3.87 M/ul (3.90-5.20) L 10/08/17 12:30 Hgb 11.2 g/dL (12.0-16.0) L 10/08/17 12:30 Hct 35.4 % (34.5-46.5) 10/08/17 12:30 MCV 91.4 fl (80.0-100.0) 10/08/17 12:30 MCH 28.9 pg (28.0-34.0) 10/08/17 12:30 MCHC 31.6 g/dL (30.0-36.0) 10/08/17 12:30 RDW 16.0 % (11.3-14.3) H 10/08/17 12:30 Plt Count 280 K/mm3 (130-400) 10/08/17 12:30 Neut % (Auto) 83.2 % (39.0-79.0) H 10/07/17 07:05 Lymph % (Auto) 8.6 % (16.0-50.0) L 10/07/17 07:05 [place] % (Auto) 4.6 % (0.0-11.0) 10/07/17 07:05 Eos % (Auto) 0.7 % (0.0-6.8) 10/07/17 07:05 Baso % (Auto) 0.6 (0.0-1.5) 10/07/17 07:05 Neut # (Auto) 10.7 # k/uL (1.4-7.7) H 10/07/17 07:05 Lymph # (Auto) 1.1 # k/uL (0.6-4.0) 10/07/17 07:05 [place] # (Auto) 0.6 # k/uL (0.0-0.9) 10/07/17 07:05 Eos # (Auto) 0.1 # k/uL (0.0-0.6) 10/07/17 07:05 Baso # (Auto) 0.1 # k/uL (0.0-0.5) 10/07/17 07:05 Reactive Lymphs % 2.4 % (0.0-5.0) 10/07/17 07:05 Reactive Lymphs # 0.3 # k/uL (0.0-0.8) 10/07/17 07:05 Sodium 145 mmol/L (136-145) 10/08/17 12:30 Potassium 4.1 mmol/L (3.5-5.1) 10/08/17 12:30 Chloride 111 mmol/L (98-107) H 10/08/17 12:30 Carbon Dioxide 22 mmol/L (22-30) 10/08/17 12:30 BUN 28 mg/dL (7-17) H 10/08/17 12:30 Creatinine 0.80 mg/dL (0.52-1.04) 10/08/17 12:30 Estimated Creat Clear 359 10/08/17 12:30 Est GFR ( Amer) > 60 (60-) 10/08/17 12:30 Est GFR (Non-Af Amer) > 60 (60-) 10/08/17 12:30 Glucose 216 mg/dL (74-106) H 10/08/17 12:30 Lactate 1.3 U/L (0.7-2.1) 10/06/17 12:26 Calcium 9.2 mg/dL (8.4-10.2) 10/08/17 12:30 Total Bilirubin 0.1 mg/dL (0.2-1.3) L 10/07/17 07:05 AST 28 U/L (15-46) 10/07/17 07:05 ALT 19 U/L (13-69) 10/07/17 07:05 Alkaline Phosphatase 138 U/L (38-126) H 10/07/17 07:05 NT-Pro-B Natriuret Pep 655.9 pg/mL (15.0-125.0) H 10/06/17 10:51 Total Protein 9.1 g/dL (6.3-8.2) H 10/07/17 07:05 Albumin 4.0 g/dL (3.5-5.0) 10/07/17 07:05 Urine Color Yellow (YELLOW) 10/06/17 12:33 Urine Appearance Turbid (CLEAR) H 10/06/17 12:33 Urine pH 5.0 (5.0 - 8.0) 10/06/17 12:33 Ur Specific [place] 1.025 (1.010-1.030) 10/06/17 12:33 Urine Protein 2+ mg/dL (NEGATIVE) H 10/06/17 12:33 Urine Ketones Trace mg/dL (NEGATIVE) H 10/06/17 12:33 Urine Occult Blood 2+ (NEGATIVE) H 10/06/17 12:33 Urine Nitrite Negative (NEGATIVE) 10/06/17 12:33 Urine Bilirubin 3+ (NEGATIVE) H 10/06/17 12:33 Urine Urobilinogen 0.2 Eu (0.2-1.0) 10/06/17 12:33 Ur Leukocyte Esterase 3+ (NEGATIVE) H 10/06/17 12:33 Urine Glucose Negative mg/dL (NEGATIVE) 10/06/17 12:33 Assessment/Plan - Assessment/Plan (1) UTI (urinary tract infection) Status: Acute Current Visit: Yes Qualifiers: Urinary tract infection type: site unspecified Hematuria presence: without hematuria Qualified Code(s): N39.0 - Urinary tract infection, site not specified Assessment: Culture shows gram negative rods, ID/sensitivities pending Continue rocephin (2) Sepsis Status: Acute Current Visit: Yes Qualifiers: Sepsis type: sepsis due to unspecified organism Qualified Code(s): A41.9 - Sepsis, unspecified organism Assessment: WBC now normal (3) Bilateral lower leg cellulitis Status: Acute Current Visit: No Assessment: Improved with better hygeine (4) Hypovolemia Status: Acute Current Visit: No Assessment: Improved (5) Obesity Status: Acute Current Visit: No Qualifiers: Obesity type: unspecified obesity type Obesity classification: adult class 3 (BMI >= 40) Serious obesity comorbidity presence: with serious comorbidity Body mass index: BMI 45.0-49.9 Qualified Code(s): E66.9 - Obesity, unspecified; Z68.42 - Body mass index (BMI) 45.0-49.9, adult; Z68.42 - Body mass index (BMI) 45.0-49.9, adult; Z68.42 - Body mass index (BMI) 45.0-49.9, adult; Z68.42 - Body mass index (BMI) 45.0-49.9, adult (6) Rheumatoid arthritis Status: Acute Current Visit: No Qualifiers: Rheumatoid arthritis location: hand Rheumatoid factor presence: with rheumatoid factor Laterality: bilateral Qualified Code(s): M05.741 - Rheumatoid arthritis with rheumatoid factor of right hand without organ or systems involvement
[2017-10-10 00:33] VITALS: BP 134/76
--- NOTE | 2017-10-10 07:37 | Discharge Summary ---
DATE OF ADMISSION: October 06, 2017 DATE OF DISCHARGE: October 09, 2017 DIAGNOSES ON THIS HOSPITALIZATION: 1. Urinary tract infection. 2. Sepsis. 3. Rheumatoid arthritis. 4. Obesity. 5. Hypovolemia. 6. Bilateral lower leg cellulitis. SUMMARIZATION OF ADMISSION HISTORY AND PHYSICAL: This is a 61-year-old female well known to myself who presented with hypotension and sepsis with a urinary tract source on the day of admission. She was admitted and started on Rocephin. Her urine culture to date has grown out only gram-negative rods suspicious for E. Coli. Sensitivities show it to actually be resistant to ceftriaxone. Although she will be skilled today, we will change her antibiotic coverage appropriately. Her white count came down. She initially declined therapy but did agree to be skilled then. She was transferred then with continuation of all of her current medications with the exception of changing her antibiotic therapy to Bactrim DS 1 p.o. b.i.d. to cover her 2 strains of E. Coli. Occupational therapy and physical therapy consults were undertaken. She was discharged to skilled care in improved condition. LEELA
== END 2017-10-09 12:00 | disposition other institution (70) | DRG 689 ==
LOC: ED 10:10 → SOUTH 12:50
PROVIDERS: ADMIT Family Medicine; ATTEND Family Medicine
DX: N39.0 Urinary tract infection, site not specified (principal); A41.9 Sepsis, unspecified organism; L03.116 Cellulitis of left lower limb; L03.115 Cellulitis of right lower limb; M06.9 Rheumatoid arthritis, unspecified; E86.1 Hypovolemia; E66.9 Obesity, unspecified
CPT/HCPCS: 36415; 71046; 80048; 80053; 81002; 83605; 83880; 85025; 85027; 87040; 87086; 87186; 94640; 94760; 97116; 97161; A9270; J0696; J7030; 99222; 99232; 99238; S1016

== ENCOUNTER 2017-10-09 16:21 | Inpatient (IN) | payer MEDICARE, OTHER ==
[2017-10-09] MEDS ORDERED: ONDANSETRON HCL 4 MG TAB.RAPDIS PO PRN (18:34)
[2017-10-09] MEDS ORDERED: METHOTREXATE SODIUM 2.5 MG TABLET PO SCH (19:00)
[2017-10-09] MEDS ORDERED: NYSTATIN POWDER BOTTLE TP SCH (20:00)
[2017-10-09] MEDS ORDERED: oxyCODONE/ACETAMINOPHEN 5/325 TABLET PO ONE (20:39)
[2017-10-09] MEDS ORDERED: SULFAMETHOXAZOLE/TRIMETHOPRIM 1 EACH TABLET PO ONE (20:48)
[2017-10-09] MEDS ORDERED: NYSTATIN POWDER BOTTLE TP ONE (20:49)
[2017-10-09] MEDS: LISINOPRIL 5 MG TABLET PO SCH (21:00)
[2017-10-09] MEDS: SULFAMETHOXAZOLE/TRIMETHOPRIM 1 EACH TABLET PO SCH (21:00)
[2017-10-09] MEDS: PHENOL MM SCH (21:00)
[2017-10-09] MEDS: MENTHOL MM SCH (21:00)
[2017-10-09] MEDS: METOPROLOL TARTRATE 50 MG TABLET PO SCH (21:00)
[2017-10-09] MEDS: SULFASALAZINE 500 MG TABLET PO SCH (21:00)
[2017-10-10 00:40] VITALS: BMI 38.7
[2017-10-10] MEDS: PHENOL MM SCH ×3 (01:33→20:15)
[2017-10-10] MEDS: MENTHOL MM SCH ×3 (01:33→20:15)
[2017-10-10] MEDS: oxyCODONE/ACETAMINOPHEN 5/325 TABLET PO PRN ×2 (06:05→18:34)
[2017-10-10] MEDS: FUROSEMIDE 40 MG TABLET PO SCH ×2 (06:05→13:40)
[2017-10-10] MEDS: SULFASALAZINE 500 MG TABLET PO SCH ×4 (09:43→20:14)
[2017-10-10] MEDS: FOLIC ACID 1 MG TABLET PO SCH (09:44)
[2017-10-10] MEDS: SULFAMETHOXAZOLE/TRIMETHOPRIM 1 EACH TABLET PO SCH ×2 (09:44→20:14)
[2017-10-10] MEDS: METOPROLOL TARTRATE 50 MG TABLET PO SCH ×2 (09:44→20:14)
[2017-10-10] MEDS: LISINOPRIL 5 MG TABLET PO SCH ×2 (09:45→20:14)
[2017-10-10] MEDS: GABAPENTIN 100 MG CAPSULE PO SCH ×3 (09:45→17:39)
[2017-10-10] MEDS: NYSTATIN POWDER BOTTLE TP SCH (20:14)
[2017-10-11] MEDS: FUROSEMIDE 40 MG TABLET PO SCH ×2 (06:23→13:43)
[2017-10-11] MEDS: oxyCODONE/ACETAMINOPHEN 5/325 TABLET PO PRN ×2 (06:25→20:20)
[2017-10-11] MEDS: MENTHOL MM SCH ×2 (09:35→20:21)
[2017-10-11] MEDS: METOPROLOL TARTRATE 50 MG TABLET PO SCH ×2 (09:35→20:20)
[2017-10-11] MEDS: PHENOL MM SCH ×2 (09:35→20:21)
[2017-10-11] MEDS: SULFASALAZINE 500 MG TABLET PO SCH ×4 (09:35→20:20)
[2017-10-11] MEDS: FOLIC ACID 1 MG TABLET PO SCH (09:35)
[2017-10-11] MEDS: GABAPENTIN 100 MG CAPSULE PO SCH ×3 (09:35→17:15)
[2017-10-11] MEDS: SULFAMETHOXAZOLE/TRIMETHOPRIM 1 EACH TABLET PO SCH ×2 (09:35→20:20)
[2017-10-11] MEDS: LISINOPRIL 5 MG TABLET PO SCH ×2 (09:35→20:20)
[2017-10-11] MEDS: NYSTATIN POWDER BOTTLE TP SCH ×2 (09:37→20:21)
[2017-10-12] MEDS: oxyCODONE/ACETAMINOPHEN 5/325 TABLET PO PRN ×2 (06:34→20:48)
[2017-10-12] MEDS: FUROSEMIDE 40 MG TABLET PO SCH ×2 (06:34→13:37)
[2017-10-12] MEDS: SULFASALAZINE 500 MG TABLET PO SCH ×4 (08:26→20:47)
[2017-10-12] MEDS: METOPROLOL TARTRATE 50 MG TABLET PO SCH ×2 (08:27→20:48)
[2017-10-12] MEDS: SULFAMETHOXAZOLE/TRIMETHOPRIM 1 EACH TABLET PO SCH ×2 (08:27→20:47)
[2017-10-12] MEDS: FOLIC ACID 1 MG TABLET PO SCH (08:27)
[2017-10-12] MEDS: MENTHOL MM SCH ×2 (08:27→20:47)
[2017-10-12] MEDS: PHENOL MM SCH ×2 (08:27→20:47)
[2017-10-12] MEDS: GABAPENTIN 100 MG CAPSULE PO SCH ×3 (08:28→17:50)
[2017-10-12] MEDS: LISINOPRIL 5 MG TABLET PO SCH ×2 (08:28→20:48)
--- NOTE | 2017-10-12 08:35 | Inpatient Progress Note ---
Subjective - Required Recertification Statement I anticipate X number of days because-include discharge plan: 3 - Review of Systems Events since last encounter: [place]ion continues to do well. She is participating in therapy. She is having no problems with the Bactrim to which she was changed based on urine culture sensitivities. Her blood cultures were no growth. Her URI symptoms are much better. General: Fatigue. Denies: Chills, Night Sweats HEENT: Denies: Head Aches Pulmonary: Cough. Denies: Dyspnea Cardiovascular: Denies: Chest Pain Gastrointestinal: Denies: Nausea, Vomiting Genitourinary: Denies: Dysuria Musculoskeletal: Denies: Neck Pain, Shoulder Pain, Arm Pain Neurological: Weakness Objective - Exam Vitals and I&O: Vital Signs Temp 97.9 F 10/11/17 20:48 Pulse 102 H 10/11/17 20:49 Resp 20 10/11/17 20:49 BP 117/69 10/11/17 20:48 Pulse Ox 93 10/11/17 20:48 Intake & Output 10/11/17 10/11/17 10/12/17 11:59 23:59 11:59 Intake Total 520 1060 150 Balance 520 1060 150 Weight 112.037 kg Intake: Oral 520 1060 150 Other: Voiding Method Toilet Toilet # Voids 2 1 2 # Bowel Movements 1 General: Alert, Oriented to Person, Oriented to Place, Oriented to Time, Cooperative, Obese HEENT: Atraumatic, PERRLA Neck: Supple, No JVD Lungs: Wheezes, Prolonged Expiration Cardiovascular: Regular rate Abdomen: Normal bowel sounds, Soft Extremities: Other (Venous stasis changes) Neurological: Normal speech Psych/Mental Status: Mental status NL Assessment/Plan - Assessment/Plan (1) UTI (urinary tract infection) Status: Acute Current Visit: No Qualifiers: Urinary tract infection type: site unspecified Hematuria presence: without hematuria Qualified Code(s): N39.0 - Urinary tract infection, site not specified Assessment: Continue Bactrim (2) Rheumatoid arthritis Status: Acute Current Visit: No Qualifiers: Rheumatoid arthritis location: hand Rheumatoid factor presence: with rheumatoid factor Laterality: bilateral Qualified Code(s): M05.741 - Rheumatoid arthritis with rheumatoid factor of right hand without organ or systems involvement Assessment: Continue methotrexate (3) Sepsis Status: Acute Current Visit: No Qualifiers: Sepsis type: sepsis due to unspecified organism Qualified Code(s): A41.9 - Sepsis, unspecified organism Assessment: Improved Continue therapy
[2017-10-12] MEDS: NYSTATIN POWDER BOTTLE TP SCH ×2 (09:55→20:48)
[2017-10-13] MEDS: FUROSEMIDE 40 MG TABLET PO SCH ×2 (06:10→13:37)
[2017-10-13] MEDS: oxyCODONE/ACETAMINOPHEN 5/325 TABLET PO PRN ×2 (07:30→20:14)
[2017-10-13] MEDS: SULFAMETHOXAZOLE/TRIMETHOPRIM 1 EACH TABLET PO SCH ×2 (08:35→20:13)
[2017-10-13] MEDS: SULFASALAZINE 500 MG TABLET PO SCH ×4 (08:35→20:12)
[2017-10-13] MEDS: GABAPENTIN 100 MG CAPSULE PO SCH ×3 (08:36→17:27)
[2017-10-13] MEDS: FOLIC ACID 1 MG TABLET PO SCH (08:36)
[2017-10-13] MEDS: METOPROLOL TARTRATE 50 MG TABLET PO SCH ×2 (08:36→20:13)
[2017-10-13] MEDS: LISINOPRIL 5 MG TABLET PO SCH ×2 (08:36→20:14)
[2017-10-13] MEDS: NYSTATIN POWDER BOTTLE TP SCH ×2 (08:38→20:14)
[2017-10-13] MEDS: MENTHOL MM SCH ×2 (08:38→20:13)
[2017-10-13] MEDS: PHENOL MM SCH ×2 (08:38→20:13)
[2017-10-13] MEDS ORDERED: METHOTREXATE SODIUM 2.5 MG TABLET PO SCH (09:00)
[2017-10-14] MEDS: FUROSEMIDE 40 MG TABLET PO SCH ×2 (06:14→13:11)
[2017-10-14] MEDS: SULFASALAZINE 500 MG TABLET PO SCH ×4 (09:47→19:59)
[2017-10-14] MEDS: FOLIC ACID 1 MG TABLET PO SCH (09:47)
[2017-10-14] MEDS: SULFAMETHOXAZOLE/TRIMETHOPRIM 1 EACH TABLET PO SCH ×2 (09:47→20:00)
[2017-10-14] MEDS: GABAPENTIN 100 MG CAPSULE PO SCH ×3 (09:47→17:48)
[2017-10-14] MEDS: LISINOPRIL 5 MG TABLET PO SCH ×2 (09:47→20:00)
[2017-10-14] MEDS: METOPROLOL TARTRATE 50 MG TABLET PO SCH ×2 (09:47→20:00)
[2017-10-14] MEDS: NYSTATIN POWDER BOTTLE TP SCH ×2 (09:48→20:00)
[2017-10-14] MEDS: MENTHOL MM SCH ×2 (09:48→20:00)
[2017-10-14] MEDS: PHENOL MM SCH ×2 (09:48→20:00)
[2017-10-14] MEDS: oxyCODONE/ACETAMINOPHEN 5/325 TABLET PO PRN ×2 (09:52→19:31)
[2017-10-15] MEDS: FUROSEMIDE 40 MG TABLET PO SCH ×2 (06:01→13:03)
[2017-10-15] MEDS: SULFASALAZINE 500 MG TABLET PO SCH ×4 (08:44→21:10)
[2017-10-15] MEDS: LISINOPRIL 5 MG TABLET PO SCH ×2 (08:44→21:11)
[2017-10-15] MEDS: GABAPENTIN 100 MG CAPSULE PO SCH ×3 (08:45→17:58)
[2017-10-15] MEDS: METOPROLOL TARTRATE 50 MG TABLET PO SCH ×2 (08:45→21:11)
[2017-10-15] MEDS: SULFAMETHOXAZOLE/TRIMETHOPRIM 1 EACH TABLET PO SCH ×2 (08:45→21:11)
[2017-10-15] MEDS: oxyCODONE/ACETAMINOPHEN 5/325 TABLET PO PRN ×2 (08:45→21:11)
[2017-10-15] MEDS: FOLIC ACID 1 MG TABLET PO SCH (08:45)
[2017-10-15] MEDS: NYSTATIN POWDER BOTTLE TP SCH ×2 (08:45→21:11)
[2017-10-15] MEDS: MENTHOL MM SCH ×2 (08:46→21:11)
[2017-10-15] MEDS: PHENOL MM SCH ×2 (08:46→21:11)
[2017-10-16] MEDS: FUROSEMIDE 40 MG TABLET PO SCH (06:50)
[2017-10-16] MEDS: oxyCODONE/ACETAMINOPHEN 5/325 TABLET PO PRN (07:34)
[2017-10-16] MEDS: NYSTATIN POWDER BOTTLE TP SCH (08:47)
[2017-10-16] MEDS: SULFAMETHOXAZOLE/TRIMETHOPRIM 1 EACH TABLET PO SCH (08:47)
[2017-10-16] MEDS: GABAPENTIN 100 MG CAPSULE PO SCH ×2 (08:47→13:07)
[2017-10-16] MEDS: FOLIC ACID 1 MG TABLET PO SCH (08:47)
[2017-10-16] MEDS: METOPROLOL TARTRATE 50 MG TABLET PO SCH (08:47)
[2017-10-16] MEDS: SULFASALAZINE 500 MG TABLET PO SCH ×2 (08:47→13:07)
[2017-10-16] MEDS: LISINOPRIL 5 MG TABLET PO SCH (08:47)
[2017-10-16] MEDS: PHENOL MM SCH (08:49)
[2017-10-16] MEDS: MENTHOL MM SCH (08:49)
[2017-10-16 08:55] VITALS: BP 92/48
--- NOTE | 2017-10-16 11:29 | Discharge Summary ---
DATE OF ADMISSION: October 09, 2017 DATE OF DISCHARGE: October 16, 2017 DIAGNOSES ON THIS HOSPITALIZATION: 1. Cellulitis of bilateral lower extremities. 2. Urinary tract infection. 3. Sepsis. 4. Rheumatoid arthritis. 5. Congestive heart failure. 6. Obesity. SUMMARIZATION OF ADMISSION HISTORY AND PHYSICAL: This is a 62-year-old female admitted to [facility] on October 09 after being admitted on October 06 for a urinary tract infection and sepsis. She was admitted for therapy and for wound care, as well as for IV antibiotic therapy. Her cultures came back showing that she grew out 2 strains of E. Coli which were resistant to ceftriaxone, which she had initially been started on; however, after the culture results were received, she was placed on Bactrim DS 1 p.o. b.i.d. She has continued to improve fairly well. She is discharged to home today with home health. CONDITION ON DISCHARGE: She is discharged to home in improved condition with home health consult, although she would like to wait a couple of days before home health comes out to see her. MEDICATIONS ON DISCHARGE: 1. Percocet 5/325 mg 1 p.o. b.i.d. p.r.n. pain. 2. Silvadene to apply to her wound as noted with dressing changes to be done daily with application of Silvadene, Telfa, and Kerlix. 3. Folic acid 1 mg p.o. daily. 4. Lasix 40 mg p.o. b.i.d. 5. Gabapentin 100 mg p.o. t.i.d. 6. Lisinopril 10 mg p.o. b.i.d. 7. Methotrexate 7.5 mg p.o. weekly. 8. Metoprolol tartrate 50 mg p.o. b.i.d. 9. Nystatin powder apply to area in her breasts and pannus daily. 10. Bactrim DS 1 p.o. b.i.d. for 5 days. 11. Sulfasalazine 1000 mg p.o. q.i.d. DISCHARGE INSTRUCTIONS: Follow up with Dr. Sun in 2 weeks. [facility]
== END 2017-10-16 13:05 | disposition home or self-care (01) | DRG 602 ==
LOC: SOUTH 16:21
PROVIDERS: ADMIT Family Medicine; ATTEND Family Medicine
DX: L03.116 Cellulitis of left lower limb (principal); A41.9 Sepsis, unspecified organism; N39.0 Urinary tract infection, site not specified; L03.115 Cellulitis of right lower limb; M06.9 Rheumatoid arthritis, unspecified; I50.9 Heart failure, unspecified; E66.9 Obesity, unspecified
CPT/HCPCS: 94640; 94760; 97110; 97112; 97116; 97161; 97165; 97530; 97535; A9270; J7030